=== PATIENT | male | born 1970 | race Caucasian/White ===

== ENCOUNTER 2017-03-30 14:10 | Emergency (ER) | payer BC ==
[2017-03-30] MEDS ORDERED: Sodium Chloride 0.9% 2.5 ML Syringe FLUSH PRN (14:28)
[2017-03-30] MEDS ORDERED: Sodium Chloride 0.9% 10 ML Syringe FLUSH PRN (14:28)
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
[2017-03-30 15:36] LABS: CHLORIDE,CL 105 mmol/L (98-110); SODIUM,NA 139 mmol/L (136-146)
[2017-03-30] MEDS ORDERED: cloNIDine 0.1 MG Tab PO ONE (16:19)
[2017-03-30 16:47] VITALS: BP 159/104
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
== END 2017-03-30 16:42 | disposition home or self-care (01) ==
LOC: MW.ED 14:10
DX: R56.9 Unspecified convulsions (principal)
CPT/HCPCS: 70450; 72125; 80053; 85025; 99284; A9270; 99283

== ENCOUNTER 2017-06-08 11:04 | Emergency (ER) | payer BC ==
[2017-06-08 12:01] VITALS: BP 146/78
--- NOTE | 2017-06-08 13:17 | EDM.PDOC ---
ED HPI GENERAL MEDICAL PROBLEM - General Chief Complaint: Respiratory Problem Stated Complaint: COLD COUGHING Time Seen by Provider: 06/08/17 13:05 Source of Information: Reports: Patient History Limitations: Reports: No Limitations - History of Present Illness INITIAL COMMENTS - FREE TEXT/NARRATIVE: HISTORY AND PHYSICAL: History of present illness: Patient comes to the emergency room complaining of cough and chest congestion for the past 3 weeks. At the onset of his symptoms he was coughing up clear to white colored sputum. This has turned somewhat yellow and is now streaked with blood. He is having some pain across his mid back and all throughout his chest which is much worse with coughing. He feels that his symptoms have worsened over the past 3 days. He now has fever and chills as well as some nausea. Denies body aches. No headache. He hears a strange sensation in his left chest with taking a deep breath, which is worse in the morning. He has taken DayQuil and NyQuil for his symptoms which has not provided any significant improvement. Many recent ill contacts. History of seizures and hypertension. Review of systems: As per history of present illness and below otherwise all systems reviewed and negative. Past medical history: As per history of present illness and as reviewed below otherwise noncontributory. Surgical history: As per history of present illness and as reviewed below otherwise noncontributory. Social history: No reported history of drug or alcohol abuse. Family history: As per history of present illness and as reviewed below otherwise noncontributory. Physical exam: HEENT: Atraumatic, normocephalic. TM's are pearly cervantes, no effusion. Oral mucous membranes moist, throat clear. neck supple, no lymphadenopathy. Face is nontender to palpation. Lungs: Clear to auscultation, breath sounds equal bilaterally. Mild crackles present to bilateral posterior lower lung jimenez. Heart: S1S2, regular rate and rhythm. Abdomen: Soft, nondistended, nontender. Pelvis: Stable nontender. Genitourinary: Deferred. Rectal: Deferred. Extremities: Atraumatic, no deformity. Neurovascular unremarkable. Neuro: Awake, alert, oriented. Motor and sensory unremarkable throughout. Exam nonfocal. Diagnostics: [Chest x-ray] Impression: [URI] Plan: [Discussed with patient that his chest x-ray is clear and does not show pneumonia or abnormalities. Will treat as a URI with Doxycycline 100mg (#14) sig : 1 po BID 0 RF's. Recommend Robitussin or Delsym cough syrup and Mucinex. Follow-up with PCP. Strict return precautions are reviewed with the patient.] Definitive disposition and diagnosis as appropriate pending reevaluation and review of above. Headache Pain Score (Numeric/FACES): 8 - Related Data Allergies Allergy/AdvReac Type Severity Reaction Status Date / Time No Known Allergies Allergy Verified 06/08/17 12:03 Home Meds: Home Meds levETIRAcetam [Levetiracetam] 1,000 mg PO BID 12/27/14 [History] Lisinopril [Prinivil] 20 mg PO DAILY 06/08/17 [History] Past Medical History HEENT History: Reports: None Cardiovascular History: Reports: None Respiratory History: Reports: None Gastrointestinal History: Reports: None Genitourinary History: Reports: None Musculoskeletal History: Reports: None Neurological History: Reports: Seizure Other Neuro History: Brain tumor Psychiatric History: Reports: None Endocrine/Metabolic History: Reports: None Hematologic History: Reports: None Immunologic History: Reports: None Oncologic (Cancer) History: Reports: None Dermatologic History: Reports: None - Past Surgical History Head Surgeries/Procedures: Reports: None Male Surgical History: Reports: None Other Neurological Surgeries/Procedures: brain tumor biopsy Social & Family History - Family History Family Medical History: Noncontributory - Tobacco Use Smoking Status *Q: Never Smoker Second Hand Smoke Exposure: No - Caffeine Use Caffeine Use: Reports: Soda - Alcohol Use Days Per Week of Alcohol Use: 1 Number of Drinks Per Day: 6 Total Drinks Per Week: 6 - Recreational Drug Use Recreational Drug Use: No ED ROS GENERAL - Review of Systems Review Of Systems: ROS reveals no pertinent complaints other than HPI. ED EXAM, GENERAL - Physical Exam Exam: See Below Course - Vital Signs Last Recorded V/S: Last Vital Signs Temp 98.2 F 06/08/17 12:00 Pulse 90 06/08/17 12:00 Resp 20 06/08/17 12:00 BP 146/78 H 06/08/17 12:00 Pulse Ox 96 06/08/17 12:00 - Orders/Labs/Meds Orders: Active Orders 24 hr Category Date Time Status Chest 2V [CR] Stat Exams 06/08/17 13:14 Taken Departure - Departure Time of Disposition: 14:00 Disposition: Home, Self-Care 01 Condition: Good Clinical Impression: URI (upper respiratory infection) - Discharge Information Instructions: Upper Respiratory Infection, Adult, [id number] Referrals: PCP,None [Primary Care Provider] - Forms: ED Department Discharge Additional Instructions: The following information is given to patients seen in the emergency department who are being discharged to home. This information is to outline your options for follow-up care. We provide all patients seen in our emergency department with a follow-up referral. The need for follow-up, as well as the timing and circumstances, are variable depending upon the specifics of your emergency department visit. If you don't have a primary care physician on staff, we will provide you with a referral. We always advise you to contact your personal physician following an emergency department visit to inform them of the circumstance of the visit and for follow-up with them and/or the need for any referrals to a consulting specialist. The emergency department will also refer you to a specialist when appropriate. This referral assures that you have the opportunity for follow-up care with a specialist. All of these measure are taken in an effort to provide you with optimal care, which includes your follow-up. Under all circumstances we always encourage you to contact your private physician who remains a resource for coordinating your care. When calling for follow-up care, please make the office aware that this follow-up is from your recent emergency room visit. If for any reason you are refused follow-up, please contact the [facility] emergency department at and asked to speak to the emergency department charge nurse. [facility] [address] [place] [id number] Follow-up with your PCP at the clinic listed above in the next 48-72 hours. Take Mucinex as needed for chest congestion. Recommend Robitussin or Delsym cough syrup as needed. These medications are superior to DayQuil and NyQuil. Take antibiotic as prescribed. Turn to ER as needed as discussed. - My Orders Last 24 Hours: My Active Orders 06/08/17 13:14 Chest 2V [CR] Stat - Assessment/Plan Last 24 Hours: My Active Orders 06/08/17 13:14 Chest 2V [CR] Stat
--- NOTE | 2017-06-10 12:42 | CR ---
EXAM DATE: 06/08/17 PATIENT'S AGE: 46 Patient: ALBERTO SWANN Facility: [place], [place] Site . Site : 1970 Study: XRay Chest [id number] 1:44:16 PM Ordering Physician: Doctor Abbott Final Report: HISTORY: Pain and shortness of breath. COMPARISON: 06/05/2016. FINDINGS: The lungs are clear. Costophrenic angles sharp. Heart size and pulmonary vascularity are within normal limits. Bony thorax intact. IMPRESSION: No acute pulmonary process. Dictated by Vianey Livingston MD @ Jun 08 2017 1:47PM (Electronic Signature) Report Signed by Proxy. ANN MARIE
== END 2017-06-08 14:12 | disposition home or self-care (01) ==
LOC: MW.ED 11:04
DX: J06.9 Acute upper respiratory infection, unspecified (principal); I10 Essential (primary) hypertension; Z79.899 Other long term (current) drug therapy
CPT/HCPCS: 71046; 71046-26; 99283

== ENCOUNTER 2018-01-20 10:16 | Emergency (ER) | payer BC ==
[2018-01-20] MEDS ORDERED: Sodium Chloride 0.9% 2.5 ML Syringe FLUSH PRN (10:32)
[2018-01-20] MEDS ORDERED: Sodium Chloride 0.9% 10 ML Syringe FLUSH PRN (10:32)
[2018-01-20] MEDS ORDERED: Sodium Chloride 0.9% 1,000 ML IV ONE (10:33)
[2018-01-20] MEDS ORDERED: Metoprolol Succinate 25 MG Tab.ER PO ONE (10:44)
--- NOTE | 2018-01-20 10:52 | EDM.PDOC ---
ED HPI GENERAL MEDICAL PROBLEM - General Chief Complaint: Headache Stated Complaint: PT SPOKE TO NURSE Time Seen by Provider: 01/20/18 10:48 Source of Information: Reports: Patient History Limitations: Reports: No Limitations - History of Present Illness INITIAL COMMENTS - FREE TEXT/NARRATIVE: HISTORY AND PHYSICAL: History of present illness: Patient is a 47-year-old male here with complaint of headache and generally feeling unwell. He states that he has been sick on and off for the past 5 days with vomiting and diarrhea. He reports he last vomited 3 days ago and last had diarrhea yesterday. He states he has a mild stomach ache. He reports he has had temps around 100F. He reports he has a head that is on the top and back of his head that feels like a constant pressure. He rates the pain 7/10, denies this being his worst headache ever. Patient states that he feels as though he is dehydrated. He denies any visual disturbances, nausea, ataxia, confusion. He denies any cough, congestion, chest pain, shortness of breath. Patient has a history of a brain tumor (astrocytoma) that is stable, he last had an MRI in [place] approximately 4-5 months ago. Blood pressure is 175/103 which he reports is usual for her, patient has not taken his metoprolol today. Again he denies any chest pain/pressure, shortness of breath, nausea, diaphoresis. Review of systems: As per history of present illness and below otherwise all systems reviewed and negative. Past medical history: As per history of present illness and as reviewed below otherwise noncontributory. Surgical history: As per history of present illness and as reviewed below otherwise noncontributory. Social history: No reported history of drug or alcohol abuse. Family history: As per history of present illness and as reviewed below otherwise noncontributory. Physical exam: General: Patient sitting comfortably in no acute distress and nontoxic appearing HEENT: Atraumatic, normocephalic, pupils reactive, negative for conjunctival pallor or scleral icterus, mucous membranes moist, throat clear, neck supple, nontender, trachea midline. No meningeal signs. Lungs: Clear to auscultation, breath sounds equal bilaterally, chest nontender. Heart: S1S2, regular, negative for clicks, rubs, or overt murmur. Abdomen: Soft, nondistended, nontender. Negative for masses or hepatosplenomegaly. Negative for costovertebral tenderness. Pelvis: Stable nontender. Genitourinary: Deferred. Rectal: Deferred. Extremities: Atraumatic, negative for cords or calf pain. Neurovascular unremarkable. Neuro: Awake, alert, oriented. Cranial nerves II through XII unremarkable. Cerebellum unremarkable. Motor and sensory unremarkable throughout. Exam nonfocal. Notes: Diagnostics: CBC, CMP, rapid strep, influenza Therapeutics: 1L NS IV Metoprolol 25mg PO Prescriptions: Impression: Headache Plan: 1. Drink plenty of fluids as instructed, tylenol or motrin as needed 2. Follow up with primary care provider 3. Return to ED as needed as discussed Definitive disposition and diagnosis as appropriate pending reevaluation and review of above. headache Pain Score (Numeric/FACES): 7 - Related Data Allergies Allergy/AdvReac Type Severity Reaction Status Date / Time No Known Allergies Allergy Verified 01/20/18 10:28 Home Meds: Home Meds levETIRAcetam [Levetiracetam] 1,000 mg PO BID 12/27/14 [History] Metoprolol Succinate [Toprol XL] 25 mg PO DAILY 01/20/18 [History] OXcarbazepine [Oxcarbazepine] 1 tab PO BID 01/20/18 [History] Past Medical History HEENT History: Reports: None Cardiovascular History: Reports: None Respiratory History: Reports: None Gastrointestinal History: Reports: None Genitourinary History: Reports: None Musculoskeletal History: Reports: None Neurological History: Reports: Seizure Other Neuro History: Brain tumor Psychiatric History: Reports: None Endocrine/Metabolic History: Reports: None Hematologic History: Reports: None Immunologic History: Reports: None Oncologic (Cancer) History: Reports: None Dermatologic History: Reports: None - Past Surgical History Head Surgeries/Procedures: Reports: None Male Surgical History: Reports: None Other Neurological Surgeries/Procedures: brain tumor biopsy Social & Family History - Family History Family Medical History: Noncontributory - Tobacco Use Smoking Status *Q: Never Smoker Second Hand Smoke Exposure: No - Caffeine Use Caffeine Use: Reports: Soda - Alcohol Use Days Per Week of Alcohol Use: 2 Number of Drinks Per Day: 8 Total Drinks Per Week: 16 - Recreational Drug Use Recreational Drug Use: No ED ROS GENERAL - Review of Systems Review Of Systems: ROS reveals no pertinent complaints other than HPI. - Physical Exam Exam: See Below (see dictation) Course - Vital Signs Last Recorded V/S: Last Vital Signs Temp 35.9 C 01/20/18 10:25 Pulse 72 01/20/18 11:02 Resp 18 01/20/18 10:25 BP 153/102 H 01/20/18 11:02 Pulse Ox 98 01/20/18 10:25 - Orders/Labs/Meds Orders: Active Orders 24 hr Category Date Time Status CULTURE STREP A CONFIRMATION [] Stat Lab 01/20/18 10:53 Results STREP SCRN A RAPID W CULT CONF [RM] Stat Lab 01/20/18 10:53 Results Sodium Chloride 0.9% [Saline Flush] Med 01/20/18 10:32 Active 10 ml FLUSH ASDIRECTED PRN Sodium Chloride 0.9% [Saline Flush] Med 01/20/18 10:32 Active 2.5 ml FLUSH ASDIRECTED PRN Saline Lock Insert [OM.PC] Stat Oth 01/20/18 10:33 Ordered Medication Orders Sodium Chloride (Saline Flush) 10 ml FLUSH ASDIRECTED PRN PRN Reason: Keep Vein Open Sodium Chloride (Saline Flush) 2.5 ml FLUSH ASDIRECTED PRN PRN Reason: Keep Vein Open Labs: Laboratory Tests 01/20/18 01/20/18 01/20/18 Range/Units 10:53 10:53 11:48 WBC 4.76 (4.0-11.0) K/uL RBC 4.56 (4.50-5.90) M/uL Hgb 14.0 (13.0-17.0) g/dL Hct 40.3 (38.0-50.0) % MCV 88.4 (80.0-98.0) fL MCH 30.7 (27.0-32.0) pg MCHC 34.7 (31.0-37.0) g/dL RDW Std Deviation 42.4 (28.0-62.0) fl RDW Coeff of Chanell 13 (11.0-15.0) % Plt Count 171 (150-400) K/uL MPV 9.90 (7.40-12.00) fL Neut % (Auto) 64.4 (48.0-80.0) % Lymph % (Auto) 25.8 (16.0-40.0) % [place] % (Auto) 6.9 (0.0-15.0) % Eos % (Auto) 2.5 (0.0-7.0) % Baso % (Auto) 0.4 (0.0-1.5) % Neut # (Auto) 3.1 (1.4-5.7) K/uL Lymph # (Auto) 1.2 (0.6-2.4) K/uL [place] # (Auto) 0.3 (0.0-0.8) K/uL Eos # (Auto) 0.1 (0.0-0.7) K/uL Baso # (Auto) 0.0 (0.0-0.1) K/uL Nucleated RBC % 0.0 /100WBC Nucleated RBCs # 0 K/uL Sodium 139 (136-148) mmol/L Potassium 3.6 (3.5-5.1) mmol/L Chloride 105 (98-107) mmol/L Carbon Dioxide 24.5 (21.0-32.0) mmol/L BUN 12 (7.0-18.0) mg/dL Creatinine 1.2 (0.8-1.3) mg/dL Est Cr Clr Drug Dosing 81.73 mL/min Estimated GFR (MDRD) > 60.0 ml/min Glucose 92 (74-106) mg/dL Calcium 8.5 (8.5-10.1) mg/dL Total Bilirubin 0.7 (0.2-1.0) mg/dL AST 23 (15-37) IU/L ALT 33 (14-63) IU/L Alkaline Phosphatase 76 (46-116) U/L Total Protein 7.1 (6.4-8.2) g/dL Albumin 3.7 (3.4-5.0) g/dL Globulin 3.4 (2.0-3.5) g/dL Albumin/Globulin Ratio 1.1 L (1.3-2.8) Lipase 187 (73-393) U/L Urine Color YELLOW Urine Appearance CLEAR Urine pH 6.0 (5.0-8.0) Ur Specific [place] >= 1.030 (1.001-1.035) Urine Protein NEGATIVE (NEGATIVE) mg/dL Urine Glucose (UA) NEGATIVE (NEGATIVE) mg/dL Urine Ketones NEGATIVE (NEGATIVE) mg/dL Urine Occult Blood NEGATIVE (NEGATIVE) Urine Nitrite NEGATIVE (NEGATIVE) Urine Bilirubin NEGATIVE (NEGATIVE) Urine Urobilinogen 0.2 (<2.0) EU/dL Ur Leukocyte Esterase NEGATIVE (NEGATIVE) Meds: Medications Generic Name Dose Route Start Last Admin Trade Name Freq PRN Reason Stop Dose Admin Sodium Chloride 10 ml 01/20/18 10:32 Saline Flush FLUSH ASDIRECTED PRN Keep Vein Open Sodium Chloride 2.5 ml 01/20/18 10:32 Saline Flush FLUSH ASDIRECTED PRN Keep Vein Open Discontinued Medications Generic Name Dose Route Start Last Admin Trade Name Freq PRN Reason Stop Dose Admin Sodium Chloride 1,000 mls @ 999 mls/hr 01/20/18 10:33 01/20/18 11:01 Normal Saline IV 01/20/18 11:33 999 mls/hr STAT ONE Administration Ketorolac Tromethamine 30 mg 01/20/18 11:16 01/20/18 11:30 Toradol IVPUSH 01/20/18 11:17 30 mg ONETIME ONE Administration Metoprolol Succinate 25 mg 01/20/18 10:44 01/20/18 11:02 Toprol Xl PO 01/20/18 10:45 25 mg ONETIME ONE Administration Departure - Departure Time of Disposition: 13:02 Disposition: Home, Self-Care 01 Condition: Good Clinical Impression: Headache - Discharge Information Forms: ED Department Discharge Additional Instructions: The following information is given to patients seen in the emergency department who are being discharged to home. This information is to outline your options for follow-up care. We provide all patients seen in our emergency department with a follow-up referral. The need for follow-up, as well as the timing and circumstances, are variable depending upon the specifics of your emergency department visit. If you don't have a primary care physician on staff, we will provide you with a referral. We always advise you to contact your personal physician following an emergency department visit to inform them of the circumstance of the visit and for follow-up with them and/or the need for any referrals to a consulting specialist. The emergency department will also refer you to a specialist when appropriate. This referral assures that you have the opportunity for follow-up care with a specialist. All of these measure are taken in an effort to provide you with optimal care, which includes your follow-up. Under all circumstances we always encourage you to contact your private physician who remains a resource for coordinating your care. When calling for follow-up care, please make the office aware that this follow-up is from your recent emergency room visit. If for any reason you are refused follow-up, please contact the [facility] Emergency Department at and asked to speak to the emergency department charge nurse. [address] [address] 1. Drink plenty of fluids as instructed, tylenol or motrin as needed 2. Follow up with primary care provider 3. Return to ED as needed as discussed - My Orders Last 24 Hours: My Active Orders 01/20/18 10:32 Sodium Chloride 0.9% [Saline Flush] 10 ml FLUSH ASDIRECTED PRN Sodium Chloride 0.9% [Saline Flush] 2.5 ml FLUSH ASDIRECTED PRN 01/20/18 10:33 Saline Lock Insert [OM.PC] Stat 01/20/18 10:53 CULTURE STREP A CONFIRMATION [RM] Stat STREP SCRN A RAPID W CULT CONF [RM] Stat - Assessment/Plan Last 24 Hours: My Active Orders 01/20/18 10:32 Sodium Chloride 0.9% [Saline Flush] 10 ml FLUSH ASDIRECTED PRN Sodium Chloride 0.9% [Saline Flush] 2.5 ml FLUSH ASDIRECTED PRN 01/20/18 10:33 Saline Lock Insert [OM.PC] Stat 01/20/18 10:53 CULTURE STREP A CONFIRMATION [RM] Stat STREP SCRN A RAPID W CULT CONF [RM] Stat
[2018-01-20] MEDS ORDERED: Ketorolac 30 MG/ML SDV IVPUSH ONE (11:16)
[2018-01-20 11:31] LABS: CHLORIDE,CL 105 mmol/L (98-107); SODIUM,NA 139 mmol/L (136-148)
--- NOTE | 2018-01-20 12:55 | CT ---
EXAMINATION: Non contrast CT head. Coronal and sagittal reformats. HISTORY: Headache FINDINGS: No evidence of intra or extra axial hemorrhage, midline shift, hydrocephalus or edema. There is a l arge hypodense area within the right temporal temporal lobe extending into the insular region, not si gnificantly unchanged. No hypoattenuation changes in the major vascular territories to suggest acute infarct. No abnormal intracranial calcifications are detected. No evidence of substantial vascular calcificat ions. Paranasal sinuses and mastoid air cells are well aerated without substantial findings. Stable calcifi ed dural based nodule overlying the medial right frontal lobe likely a meningioma. Pituitary fossa appears unremarkable. Postoperative changes noted within the right temporal calvarium. IMPRESSION: 1. No acute intracranial findings. 2. Large hypodense region involving the majority of the right temporal lobe, not significantly change d from the prior CT.
[2018-01-20 13:22] VITALS: BP 150/92
== END 2018-01-20 13:05 | disposition home or self-care (01) ==
LOC: MW.ED 10:16
DX: R51 Headache (principal); R19.7 Diarrhea, unspecified; R11.10 Vomiting, unspecified; Z79.899 Other long term (current) drug therapy
CPT/HCPCS: 36415; 70450; 80053; 81003; 83690; 85025; 87081; 87804; 87880; 96361; 96374; 99284; A9270; J1885; J7040; 99283

== ENCOUNTER 2018-07-25 15:21 | Emergency (ER) | payer BC ==
--- NOTE | 2018-07-25 16:23 | EDM.PDOC ---
ED HPI GENERAL MEDICAL PROBLEM - General Chief Complaint: Lower Extremity Injury/Pain Stated Complaint: LEG INJURY Time Seen by Provider: 07/25/18 16:18 - History of Present Illness INITIAL COMMENTS - FREE TEXT/NARRATIVE: HISTORY AND PHYSICAL: History of present illness: Patient's a 48-year-old white male presents with a concern of left knee and ankle injury that occurred when he had a fall earlier today he denies head or neck pain or trauma or other concern. Review of systems: As per history of present illness and below otherwise all systems reviewed and negative. Past medical history: As per history of present illness and as reviewed below otherwise noncontributory. Surgical history: As per history of present illness and as reviewed below otherwise noncontributory. Social history: No reported history of drug or alcohol abuse. Family history: As per history of present illness and as reviewed below otherwise noncontributory. Physical exam: HEENT: Atraumatic, normocephalic, pupils reactive, negative for conjunctival pallor or scleral icterus, mucous membranes moist, throat clear, neck supple, nontender, trachea midline. Lungs: Clear to auscultation, breath sounds equal bilaterally, chest nontender. Heart: S1S2, regular, negative for clicks, rubs, or JVD. Abdomen: Soft, nondistended, nontender. Negative for masses or hepatosplenomegaly. Negative for costovertebral tenderness. Pelvis: Stable nontender. Genitourinary: Deferred. Rectal: Deferred. Extremities: Left knee is noted Some swelling anteriorly joint is grossly stable is no crepitation or point tenderness left ankle is without point tenderness neurovascular exam is unremarkable throughout Neuro: Awake, alert, oriented. Cranial nerves II through XII unremarkable. Cerebellum unremarkable. Motor and sensory unremarkable throughout. Exam nonfocal. Diagnostics: Tray left knee/ankle Therapeutics: Eugenio wrap/crutches Impression: #1 acute left knee injury #2 ankle injury Definitive disposition and diagnosis as appropriate pending reevaluation and review of above. left knee and ankle Pain Score (Numeric/FACES): 7 - Related Data Allergies Allergy/AdvReac Type Severity Reaction Status Date / Time No Known Allergies Allergy Verified 07/25/18 15:31 Home Meds: Home Meds levETIRAcetam [Levetiracetam] 1,000 mg PO BID 12/27/14 [History] Metoprolol Succinate [Toprol XL] 25 mg PO DAILY 01/20/18 [History] OXcarbazepine [Oxcarbazepine] 1 tab PO BID 01/20/18 [History] Past Medical History HEENT History: Reports: None Cardiovascular History: Reports: None Respiratory History: Reports: None Gastrointestinal History: Reports: None Genitourinary History: Reports: None Musculoskeletal History: Reports: None Neurological History: Reports: Seizure Other Neuro History: Brain tumor Psychiatric History: Reports: None Endocrine/Metabolic History: Reports: None Hematologic History: Reports: None Immunologic History: Reports: None Oncologic (Cancer) History: Reports: None Dermatologic History: Reports: None - Infectious Disease History Infectious Disease History: Reports: None - Past Surgical History Head Surgeries/Procedures: Reports: None Male Surgical History: Reports: None Other Neurological Surgeries/Procedures: brain tumor biopsy Social & Family History - Family History Family Medical History: Noncontributory - Tobacco Use Smoking Status *Q: Never Smoker - Caffeine Use Caffeine Use: Reports: Soda - Recreational Drug Use Recreational Drug Use: No Review of Systems - Review of Systems Review Of Systems: ROS reveals no pertinent complaints other than HPI. ED EXAM, GENERAL - Physical Exam Exam: See Below (See dictation) Course - Vital Signs Last Recorded V/S: Last Vital Signs Temp 36.4 C 07/25/18 15:34 Pulse 83 07/25/18 15:34 Resp 18 07/25/18 15:34 BP 179/98 H 07/25/18 15:34 Pulse Ox 98 07/25/18 15:34 - Orders/Labs/Meds Orders: Active Orders 24 hr Category Date Time Status Ankle Min 3V Lt [CR] Stat Exams 07/25/18 15:33 Taken Knee 3V Lt [CR] Stat Exams 07/25/18 15:33 Taken Departure - Departure Time of Disposition: 16:22 Disposition: Home, Self-Care 01 Condition: Good Clinical Impression: Knee injury, Ankle injury - Discharge Information Referrals: PCP,Unknown [Primary Care Provider] - Additional Instructions: The following information is given to patients seen in the emergency department who are being discharged to home. This information is to outline your options for follow-up care. We provide all patients seen in our emergency department with a follow-up referral. The need for follow-up, as well as the timing and circumstances, are variable depending upon the specifics of your emergency department visit. If you don't have a primary care physician on staff, we will provide you with a referral. We always advise you to contact your personal physician following an emergency department visit to inform them of the circumstance of the visit and for follow-up with them and/or the need for any referrals to a consulting specialist. The emergency department will also refer you to a specialist when appropriate. This referral assures that you have the opportunity for followup care with a specialist. All of these measure are taken in an effort to provide you with optimal care, which includes your followup. Under all circumstances we always encourage you to contact your private physician who remains a resource for coordinating your care. When calling for followup care, please make the office aware that this follow-up is from your recent emergency room visit. If for any reason you are refused follow-up, please contact the [facility] emergency department at and asked to speak to the emergency department charge nurse. [facility] [address], [address] [place] [address] Eugenio wrap crutches as discussed follow-up orthopedic surgery as needed as discussed diclofenac as prescribed return as needed as discussed - My Orders Last 24 Hours: My Active Orders 07/25/18 15:33 Ankle Min 3V Lt [CR] Stat Knee 3V Lt [CR] Stat - Assessment/Plan Last 24 Hours: My Active Orders 07/25/18 15:33 Ankle Min 3V Lt [CR] Stat Knee 3V Lt [CR] Stat
--- NOTE | 2018-07-25 16:51 | CR ---
Indication: Fall Technique: Left ankle 3 views. Comparison: None Findings: Bones: Alignment is normal. No fractures or bone lesions. Joint spaces: Unremarkable. Soft tissues: Unremarkable. Impression: No sign of acute injury. Dictated by Matthew Hdez MD @ Jul 25 2018 4:47PM Signed by Dr. Matthew Hdez @ Jul 25 2018 4:49PM
--- NOTE | 2018-07-25 16:51 | CR ---
Indication: Fall Technique: Left knee 3 views Comparison: None Findings: Bones: Alignment is normal. No fractures or bone lesions. Joint spaces: Joint spaces are well maintained. No degenerative changes. No sign of joint effusion. Soft tissues: Unremarkable. Impression: No findings to explain pain. Dictated by Matthew Hdez MD @ Jul 25 2018 4:49PM Signed by Dr. Matthew Hdez @ Jul 25 2018 4:50PM
[2018-07-25 17:30] VITALS: BP 174/88
== END 2018-07-25 17:00 | disposition home or self-care (01) ==
LOC: MW.ED 15:21
DX: S89.92XA Unspecified injury of left lower leg, initial encounter (principal); S99.912A Unspecified injury of left ankle, initial encounter; W19.XXXA Unspecified fall, initial encounter; Z79.899 Other long term (current) drug therapy
CPT/HCPCS: 73562-26-LT; 73562-LT; 73610-26-LT; 73610-LT; 99283-25

== ENCOUNTER 2018-08-30 17:29 | Emergency (ER) | payer BC ==
--- NOTE | 2018-08-30 18:55 | CR ---
INDICATION: Knee pain TECHNIQUE: Knee radiograph 3 views left COMPARISON: None FINDINGS: Bone: No acute fractures or aggressive bone lesions are identified. Joint: The joint spaces of the medial, lateral, and patellofemoral compartments are unremarkable. No significant knee effusion is seen. Soft tissue: Mild edema and swelling noted in the anterior knee. No radiopaque foreign bodies are seen. IMPRESSION: 1. No acute osseous injuries or abnormalities are noted. Dictated by: Mika Blandon MD @ 08/30/2018 18:53:13 (Electronically Signed)
--- NOTE | 2018-08-30 19:13 | EDM.PDOC ---
ED HPI GENERAL MEDICAL PROBLEM - General Chief Complaint: Lower Extremity Injury/Pain Stated Complaint: knee injury Time Seen by Provider: 08/30/18 18:30 Source of Information: Reports: Patient History Limitations: Reports: No Limitations - History of Present Illness INITIAL COMMENTS - FREE TEXT/NARRATIVE: HISTORY AND PHYSICAL: History of present illness: Patient is a 48 year old male who presents to the ED today for left knee injury. Patient states he was walking when he twisted his left knee. Since then he has been having 6 out of 10 knee pain. He states he hasn't taken anything for his symptoms. Patient states he has had a prior injury to the knee but that it had healed without any issues. Patient denies fever, chills, chest pain, shortness of breath, or cough. Denies headache, neck stiff ness, change in vision, syncope, or near syncope. Denies nausea, vomiting, abdominal pain, diarrhea, constipation, or dysuria. Has not noted any blood in urine or stool. Patient has been eating and drinking appropriately. Review of systems: As per history of present illness and below otherwise all systems reviewed and negative. Past medical history: As per history of present illness and as reviewed below otherwise noncontributory. Surgical history: As per history of present illness and as reviewed below otherwise noncontributory. Social history: See social history for further information Family history: As per history of present illness and as reviewed below otherwise noncontributory. Physical exam: General: Patient is alert, oriented, and in no acute distress. Patient sitting comfortably on exam table. HEENT: Atraumatic, normocephalic, pupils equal and reactive bilaterally, negative for conjunctival pallor or scleral icterus, mucous membranes moist, TMs normal bilaterally, throat clear, neck supple, nontender, trachea midline. No drooling or trismus noted. No meningeal signs. No hot potato voice noted. Lungs: Clear to auscultation, breath sounds equal bilaterally, chest nontender. Heart: S1S2, regular rate and rhythm without overt murmur Abdomen: Soft, nondistended, nontender. Negative for masses or hepatosplenomegaly. Negative for costovertebral tenderness. Pelvis: Stable nontender. Genitourinary: Deferred. Rectal: Deferred. Skin: Intact, warm, dry. No lesions or rashes noted. Extremities: Negative for cords or calf pain. Neurovascular unremarkable. Mild swelling to the left knee. Range of motion is limited due to pain. No obvious deformities, step-offs, or crepitus. Dorsalis pedis and posterior tibial pulses are grossly intact. Capillary refill less than 2 seconds. Neuro: Awake, alert, oriented. Cranial nerves II through XII unremarkable. Cerebellum unremarkable. Motor and sensory unremarkable throughout. Exam nonfocal. Notes: Discussed the importance for follow-up with an orthopedic provider and primary care provider. Voices understanding and is agreeable to plan of care. Denies any further questions or concerns at this time. Diagnostics: Knee x-ray Therapeutics: [employer] Prescription: Diclofenac Impression: Left knee injury Plan: 1. Rest, ice, elevate the affected extremity. You can apply ice 15 minutes on, 15 minutes off. 2. Tylenol as directed for pain management or discomfort. Take medication as prescribed. 3. Follow up with the Orthopedic provider as discussed. Return to the ED as needed and as discussed. Definitive disposition and diagnosis as appropriate pending reevaluation and review of above. Left Knee Pain Score (Numeric/FACES): 10 - Related Data Allergies Allergy/AdvReac Type Severity Reaction Status Date / Time No Known Allergies Allergy Verified 08/30/18 18:15 Home Meds: Home Meds levETIRAcetam [Levetiracetam] 1,000 mg PO BID 12/27/14 [History] Metoprolol Succinate [Toprol XL] 25 mg PO DAILY 01/20/18 [History] OXcarbazepine [Oxcarbazepine] 1 tab PO TID 01/20/18 [History] Diclofenac Sodium [Voltaren] 75 mg PO BIDMEALS PRN #12 tab.cr 08/30/18 [Rx] Past Medical History HEENT History: Reports: None Cardiovascular History: Reports: Hypertension Respiratory History: Reports: None Gastrointestinal History: Reports: None Genitourinary History: Reports: None Musculoskeletal History: Reports: None Neurological History: Reports: Seizure Other Neuro History: Brain tumor Psychiatric History: Reports: None Endocrine/Metabolic History: Reports: None Hematologic History: Reports: None Immunologic History: Reports: None Oncologic (Cancer) History: Reports: None Dermatologic History: Reports: None - Infectious Disease History Infectious Disease History: Reports: None - Past Surgical History Head Surgeries/Procedures: Reports: None Male Surgical History: Reports: None Other Neurological Surgeries/Procedures: brain tumor biopsy Social & Family History - Family History Family Medical History: Noncontributory - Tobacco Use Smoking Status *Q: Never Smoker - Caffeine Use Caffeine Use: Reports: None - Recreational Drug Use Recreational Drug Use: No Review of Systems - Review of Systems Review Of Systems: ROS reveals no pertinent complaints other than HPI. ED EXAM, GENERAL - Physical Exam Exam: See Below (See dictation) Course - Vital Signs Last Recorded V/S: Last Vital Signs Temp 36.4 C 08/30/18 18:12 Pulse 76 08/30/18 19:36 Resp 15 08/30/18 19:36 BP 145/99 H 08/30/18 19:36 Pulse Ox 97 08/30/18 19:36 Departure - Departure Time of Disposition: 19:12 Disposition: Home, Self-Care 01 Clinical Impression: Knee injury Qualifiers: Encounter type: initial encounter Laterality: left Qualified Code(s): S89.92XA - Unspecified injury of left lower leg, initial encounter - Discharge Information Prescriptions: Diclofenac Sodium [Voltaren] 75 mg PO BIDMEALS PRN #12 tab.cr PRN Reason: Pain Instructions: Knee Pain, Adult Referrals: PCP,Unknown [Primary Care Provider] - Forms: ED Department Discharge Additional Instructions: The following information is given to patients seen in the emergency department who are being discharged to home. This information is to outline your options for follow-up care. We provide all patients seen in our emergency department with a follow-up referral. The need for follow-up, as well as the timing and circumstances, are variable depending upon the specifics of your emergency department visit. If you don't have a primary care physician on staff, we will provide you with a referral. We always advise you to contact your personal physician following an emergency department visit to inform them of the circumstance of the visit and for follow-up with them and/or the need for any referrals to a consulting specialist. The emergency department will also refer you to a specialist when appropriate. This referral assures that you have the opportunity for follow-up care with a specialist. All of these measure are taken in an effort to provide you with optimal care, which includes your follow-up. Under all circumstances we always encourage you to contact your private physician who remains a resource for coordinating your care. When calling for follow-up care, please make the office aware that this follow-up is from your recent emergency room visit. If for any reason you are refused follow-up, please contact the [facility] Emergency Department at and asked to speak to the emergency department charge nurse. [facility] [address] [place] [address] [address] [facility] Professional Building [address] [place] [address], [address] [place] [address] 1. Rest, ice, elevate the affected extremity. You can apply ice 15 minutes on, 15 minutes off. 2. Tylenol as directed for pain management or discomfort. Take medication as prescribed. 3. Follow up with the Orthopedic provider as discussed. Return to the ED as needed and as discussed.
[2018-08-30 19:37] VITALS: BP 145/99
== END 2018-08-30 19:37 | disposition home or self-care (01) ==
LOC: MW.ED 17:29
DX: S89.92XA Unspecified injury of left lower leg, initial encounter (principal); I10 Essential (primary) hypertension; Z79.899 Other long term (current) drug therapy; W19.XXXA Unspecified fall, initial encounter
CPT/HCPCS: 73562-26-LT; 73562-LT; 99283-25

== ENCOUNTER 2019-06-16 15:51 | Emergency (ER) | payer BC ==
--- NOTE | 2019-06-16 16:54 | CT ---
Head CT Technique: Multiple axial sections through the brain were obtained. Intravenous contrast was not utilized. Comparison: Prior head CT study of 01/20/18. Findings: Large hypodense area is identified on the right side within the right temporal and posterior right frontal region. This finding is felt to be fairly stable from prior exam. Please correlate if etiology of this is known clinically. No new areas of abnormal parenchymal density are seen. No intracranial hemorrhage is seen. No midline shift or mass-effect is appreciated. Bone window settings were reviewed which shows no acute calvarial abnormality. Mastoid sinuses that are seen show nothing acute. Visualized paranasal sinuses show nothing acute. Impression: 1. Large area of low density within the right side of the brain which remains fairly stable from previous head CT study. Etiology for this finding is not appreciated on this exam. Please correlate if etiology is known clinically. 2. No acute intracranial abnormality is appreciated. Diagnostic code #3 This report was dictated in Mountain Standard Time
[2019-06-16 17:55] VITALS: BP 167/95; PULSE 71
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
== END 2019-06-16 18:10 | disposition home or self-care (01) ==
LOC: MW.ED 15:51
DX: S06.0X9A Concussion with loss of consciousness of unspecified duration, initial encounter (principal); I10 Essential (primary) hypertension; Z79.899 Other long term (current) drug therapy; Y04.0XXA Assault by unarmed brawl or fight, initial encounter
CPT/HCPCS: 70450; 70450-26; 99283; 99284-25

== ENCOUNTER 2019-10-30 09:26 | Emergency (ER) | payer BC ==
--- NOTE | 2019-10-30 10:05 | EDM.PDOC ---
ED HPI GENERAL MEDICAL PROBLEM - General Chief Complaint: General Stated Complaint: SPOKE WITH NURSE Time Seen by Provider: 10/30/19 10:00 Source of Information: Reports: Patient, EMS Notes Reviewed History Limitations: Reports: No Limitations - History of Present Illness INITIAL COMMENTS - FREE TEXT/NARRATIVE: 49-year-old male with a significant past medical history of a brain tumor; states that this type of tumor cannot be removed and is currently on numerous medications to prevent seizures Presenting today for concerns about COVID exposure Mentions female acquaintance that he hangs out with tested positive yesterday for COVID (from [place]) and was symptomatic with cold-like symptoms. Patient currently denies any fevers, chills, bodies, coughing, sneezing, wheezing, shortness of breath, palpitations. Patient is concerned whether he needs to be tested secondary to COVID exposure. - Related Data Allergies Allergy/AdvReac Type Severity Reaction Status Date / Time No Known Allergies Allergy Verified 10/30/19 09:53 Home Meds: Home Meds levETIRAcetam [Levetiracetam] 1,000 mg PO BID 12/27/14 [History] Metoprolol Succinate [Toprol XL] 25 mg PO DAILY 01/20/18 [History] OXcarbazepine [Oxcarbazepine] 1 tab PO TID 01/20/18 [History] Past Medical History HEENT History: Reports: None Cardiovascular History: Reports: Hypertension Respiratory History: Reports: None Gastrointestinal History: Reports: None Genitourinary History: Reports: None Musculoskeletal History: Reports: None Neurological History: Reports: Seizure Other Neuro History: Brain tumor Psychiatric History: Reports: None Endocrine/Metabolic History: Reports: None Hematologic History: Reports: None Immunologic History: Reports: None Oncologic (Cancer) History: Reports: None Dermatologic History: Reports: None - Infectious Disease History Infectious Disease History: Reports: None - Past Surgical History Head Surgeries/Procedures: Reports: None Male Surgical History: Reports: None Other Neurological Surgeries/Procedures: brain tumor biopsy Social & Family History - Family History Family Medical History: Noncontributory - Caffeine Use Caffeine Use: Reports: Soda ED ROS GENERAL - Review of Systems Review Of Systems: See Below Constitutional: Reports: No Symptoms HEENT: Reports: No Symptoms Respiratory: Reports: No Symptoms Cardiovascular: Reports: No Symptoms Endocrine: Reports: No Symptoms GI/Abdominal: Reports: No Symptoms : Reports: No Symptoms Musculoskeletal: Reports: No Symptoms Skin: Reports: No Symptoms Neurological: Reports: No Symptoms Psychiatric: Reports: No Symptoms ED EXAM, GENERAL - Physical Exam Exam: See Below General Appearance: Alert, WD/WN, No Apparent Distress Throat/Mouth: Normal Oropharynx Head: Atraumatic, Normocephalic Respiratory/Chest: No Respiratory Distress, Lungs Clear, Normal Breath Sounds Cardiovascular: Normal Peripheral Pulses, Regular Rate, Rhythm, No Edema GI/Abdominal: Normal Bowel Sounds, Soft, Non-Tender Extremities: Normal Inspection Neurological: Alert, Oriented Skin Exam: Warm, Dry, Intact Course - Vital Signs Last Recorded V/S: Last Vital Signs Temp 96.9 F 10/30/19 09:50 Pulse 62 10/30/19 10:45 Resp 16 10/30/19 10:45 BP 136/91 H 10/30/19 10:45 Pulse Ox 98 10/30/19 10:45 Departure - Departure Time of Disposition: 10:23 Disposition: Home, Self-Care 01 Clinical Impression: Exposure to COVID-19 virus - Discharge Information *PRESCRIPTION DRUG MONITORING PROGRAM REVIEWED*: Not Applicable *COPY OF PRESCRIPTION DRUG MONITORING REPORT IN PATIENT FLORI: Not Applicable Instructions: Contact Precautions, COVID-19 Frequently Asked Questions, COVID- 19, Airborne Precautions, [id number], COVID-19: How to Protect Yourself and Others - CDC, Infection Prevention in the Home, Prevent the Spread of COVID-19 if You Are Sick - [facility] Referrals: Teodoro Hollis [Ordering Only Provider] - (To respiratory clinic Saturday) Taya Jerez DO [Primary Care Provider] - Forms: ED Department Discharge Additional Instructions: PLEASE SELF QUARANTINE FOR THE NEXT 14 DAYS RETURN IF SYMPTOMS OF FEVER, CHILLS, BODY ACHES, SHORTNESS OF BREATH, CHEST PAIN AND ANY OTHER NEW SYMPTOM DEVELOP.S IF NO SYMPTOMS CAN CONTACT RESPIRATORY CLINIC ON Saturday11-02-2019 FOR COVID TESTING Sepsis Event Note (ED) - Focused Exam Vital Signs: Vital Signs Temp Pulse Resp BP Pulse Ox 10/30/19 10:45 62 16 136/91 H 98 10/30/19 09:57 151/95 H 10/30/19 09:50 96.9 F 71 18 194/111 H 99 - Assessment/Plan Assessment:: assessment 1. COVID exposure; patient is currently asymptomatic. Advised patient return to ER if patient develops any fevers, chills, body aches, chest pain, shortness of breath. Provided instructions about 14 days of quarantine including contact and droplet precautions. Advised to use a mask at all times especially around other individuals. Advised to avoid any unnecessary travel. Patient is also advised if still asymptomatic to contact respiratory clinic at [facility] on Saturday for a COVID testing. Patient is in agreement understands plan. Will return for any concerns, symptoms. Discharged in stable condition. Elevated BP on arrival: repeat BP WNL; continue Home medication of Metoprolol
[2019-10-30 10:48] VITALS: BP 136/91; PULSE 62
== END 2019-10-30 10:47 | disposition home or self-care (01) ==
LOC: MW.ED 09:26
DX: Z20.828 Contact with and (suspected) exposure to other viral communicable diseases (principal); I10 Essential (primary) hypertension; R56.9 Unspecified convulsions; Z79.899 Other long term (current) drug therapy
CPT/HCPCS: 99283

== ENCOUNTER 2020-07-03 04:36 | Emergency (ER) | payer BC ==
[2020-07-03 05:04] VITALS: BP 156/113; PULSE 104
[2020-07-03] MEDS ORDERED: Sulfamethoxazole/Trimethoprim 800-160 MG Tab PO ONE (05:36)
[2020-07-03] MEDS ORDERED: Cephalexin 500 MG Cap PO ONE (05:36)
[2020-07-03] MEDS ORDERED: Bacitracin Oint 1 GM U/D Packet TOP ONE (05:53)
--- NOTE | 2020-07-03 05:53 | EDM.PDOC ---
ED HPI GENERAL MEDICAL PROBLEM - General Chief Complaint: Upper Extremity Injury/Pain Stated Complaint: BRUISED MIDDLE FINGER ON LEFT HAND Time Seen by Provider: 07/03/20 05:05 - History of Present Illness INITIAL COMMENTS - FREE TEXT/NARRATIVE: CHIEF COMPLAINT(S): Finger pain HISTORY OF PRESENT ILLNESS: This is a 50-year-old man with a past medical history of seizure disorder, hypertension and a brain tumor unknown type who comes to the emergency department with a chief complaint of finger pain. The patient states that approximately 1 week ago he started to experience pain on his middle finger by the nailbed. He states that since that time it has gotten more painful and swollen and started turning black today. He states that he is in so much pain and rates it as a 10 out of 10 and hurts anytime he moves it. He states that he comes in because he cannot sleep. He denies any fevers, chills, chest pain or shortness of breath. He states that he did not injure his finger. He denies any other symptoms. REVIEW OF SYSTEMS: Constitutional: Denies fever, chills. Eyes: Denies eye pain Ears, Nose, Mouth, & Throat: Denies earache Cardiovascular: Denies chest pain Respiratory: Denies shortness of breath Gastrointestinal: Denies Nausea, vomiting, diarrhea, hematochezia. Genitourinary: Denies hematuria Skin: Positive for right middle finger swelling and turning black MSK: Positive for right middle finger pain Neurological: Denies blurred vision Psychiatric: Denies depression PAST MEDICAL HISTORY: As per history of present illness and as reviewed below otherwise noncontributory. SURGICAL HISTORY: As per history of present illness and as reviewed below otherwise noncontributory. SOCIAL HISTORY: As per history of present illness and as reviewed below otherwise noncontributory. FAMILY HISTORY: As per history of present illness and as reviewed below otherwise noncontributory. EXAMINATION OF ORGAN SYSTEMS/BODY AREAS: Constitutional: Blood pressure is 156/113, heart rate 104, respiratory rate 20 with an oxygen saturation 96% on room air. Temperature 36.3 General: Well-appearing man who is in no acute distress. Psychiatric: Appropriate mood and affect. Eyes: No scleral icterus or conjunctival erythema Cardiovascular: Regular, rate, and rhythm. No gallops, murmurs, or rubs. Bilateral upper extremity pulses symmetric and intact. Respiratory: Lungs clear to auscultation bilaterally. No wheezes, rales, or rhonchi. Musculoskeletal: The patient has full range of motion of the right middle finger. There is tenderness to palpation along the distal tip. No deformity. Skin: The patient's distal right middle finger is swollen on the lateral side of the nail which is fluctuant with some redness and what appears to be like a hematoma underneath. There is suggestion of paronychia but also the distal fingertip is swollen with redness throughout. Neurological: Alert, GCS 15 sensation is intact MEDICAL DECISION MAKING AND COURSE IN THE ED WITH INTERPRETATION/REVIEW OF DIAGN OSTIC STUDIES: This is a 50-year-old man with a past medical history of seizure disorder and hypertension who comes to the emergency department with right middle finger paronychia with suggestion of felon. At this time I did discuss with the patient that I would like to perform an incision and drainage for the felon and the paronychia and start the patient on antibiotics. He was amenable to this plan. Using 1% lidocaine I did inject approximately 2 to 3 cc along the lateral side of the middle finger for digital block. The area was cleaned with ChloraPrep prior to injection. No known complications. Incision and drainage was performed by myself. The area was prepped with povidone. An incision was made with an 11 blade along the lateral side/ulnar side of the third digit on the right hand and the swollen side where the paronychia is was drained. Purulent material was removed. The wound was packed with gauze. A dressing was placed. We did provide the patient with Keflex and Bactrim. He is to take this until follow-up with orthopedics. He was given strict return precautions. The patient was amenable discharge and had no further questions DISPOSITION: The patient was discharged home in stable condition. The patient will follow up with orthopedics within 5 to 7 days CONDITION: Fair PROCEDURES: Digital nerve block, incision and drainage of paronychia and felon FINAL IMPRESSION(S)/DIAGNOSES: 1. Acute right third digit felon status post incision and drainage 2. Acute right third digit paronychia status post incision and drainage Solitario Ruiz M.D. left hand Pain Score (Numeric/FACES): 10 - Related Data Allergies Allergy/AdvReac Type Severity Reaction Status Date / Time No Known Allergies Allergy Verified 07/03/20 05:01 Home Meds: Home Meds levETIRAcetam [Levetiracetam] 1,000 mg PO BID 12/27/14 [History] Metoprolol Succinate [Toprol XL] 25 mg PO DAILY 01/20/18 [History] OXcarbazepine [Oxcarbazepine] 1 tab PO TID 01/20/18 [History] Sulfamethoxazole/Trimethoprim [Bactrim Ds Tablet] 1 each PO BID #14 tablet 07/03/20 [Rx] cephALEXin [Keflex] 500 mg PO Q6H #28 cap 07/03/20 [Rx] Past Medical History HEENT History: Reports: None Cardiovascular History: Reports: Hypertension Respiratory History: Reports: None Gastrointestinal History: Reports: None Genitourinary History: Reports: None Musculoskeletal History: Reports: None Neurological History: Reports: Seizure Other Neuro History: Brain tumor Psychiatric History: Reports: None Endocrine/Metabolic History: Reports: None Hematologic History: Reports: None Immunologic History: Reports: None Oncologic (Cancer) History: Reports: None Dermatologic History: Reports: None - Infectious Disease History Infectious Disease History: Reports: None - Past Surgical History Head Surgeries/Procedures: Reports: None Male Surgical History: Reports: None Other Neurological Surgeries/Procedures: brain tumor biopsy Other Musculoskeletal Surgeries/Procedures:: Left surgery for fx Social & Family History - Family History Family Medical History: No Pertinent Family History - Tobacco Use Tobacco Use Status *Q: Never Tobacco User - Caffeine Use Caffeine Use: Reports: Soda - Recreational Drug Use Recreational Drug Use: No Review of Systems - Review of Systems Review Of Systems: See Below ED EXAM, GENERAL - Physical Exam Exam: See Below Course - Vital Signs Last Recorded V/S: Last Vital Signs Temp 36.3 C 07/03/20 05:02 Pulse 104 H 07/03/20 05:02 Resp 20 07/03/20 05:02 BP 156/113 H 07/03/20 05:02 Pulse Ox 96 07/03/20 05:02 - Orders/Labs/Meds Meds: Medications Discontinued Medications Generic Name Dose Route Start Last Admin Trade Name Freq PRN Reason Stop Dose Admin Bacitracin 1 dose 07/03/20 05:53 07/03/20 06:00 Bacitracin Oint 1 Gm TOP 07/03/20 05:54 1 dose ONETIME ONE Administration Cephalexin 500 mg 07/03/20 05:36 07/03/20 06:00 Keflex PO 07/03/20 05:37 500 mg ONETIME ONE Administration Lidocaine HCl 5 ml 07/03/20 05:15 07/03/20 05:20 Xylocaine-Mpf 1% INJECT 07/03/20 05:16 5 ml ONETIME ONE Administration Trimethoprim/Sulfamethoxazole 1 tab 07/03/20 05:36 07/03/20 06:00 Septra Ds PO 07/03/20 05:37 1 tab ONETIME ONE Administration Departure - Departure Time of Disposition: 05:51 Disposition: Home, Self-Care 01 Condition: Fair Clinical Impression: Felon, Paronychia - Discharge Information *PRESCRIPTION DRUG MONITORING PROGRAM REVIEWED*: No *COPY OF PRESCRIPTION DRUG MONITORING REPORT IN PATIENT FLORI: No Prescriptions: Sulfamethoxazole/Trimethoprim [Bactrim Ds Tablet] 1 each PO BID #14 tablet cephALEXin [Keflex] 500 mg PO Q6H #28 cap Instructions: Fingertip Infection, Paronychia, [id number] Referrals: Neel Scott MD [Primary Care Provider] - Forms: ED Department Discharge Additional Instructions: You were evaluated today on an emergent basis. At this time you are diagnosed with a felon and paronychia. We were able to drain this area. We did send a culture which will not be back for a few days. I recommend the use of Keflex 4 times a day and Bactrim twice a day for 7 days. As we discussed some antibiotics can lower the seizure threshold. If you have more seizures and they are not controlled please return to the emergency department. I also recommend the use of Tylenol and Motrin for pain relief as outlined below. If you have any worsening pain, swelling, redness that spreads please return to the emergency department. Please follow-up with your primary care physician or orthopedics within 1 week [facility] [address] [place] [id number] [facility] [address] [place] [address] [facility] [address], [address] [place] [address] The patient is informed of any results of their evaluation and diagnostic workup and all questions are answered. They are given discharge instructions and return precautions. The patient is stable for discharge. The patient states they understand and agree with the plan and that they will return if their symptoms get worse or if they have any new concerns. The following information is given to patients seen in the emergency department who are being discharged to home. This information is to outline your options for follow-up care. We provide all patients seen in our emergency department with a follow-up referral. The need for follow-up, as well as the timing and circumstances, are variable depending upon the specifics of your emergency department visit. If you don't have a primary care physician on staff, we will provide you with a referral. We always advise you to contact your personal physician following an emergency department visit to inform them of the circumstance of the visit and for follow-up with them and/or the need for any referrals to a consulting specialist. The emergency department will also refer you to a specialist when appropriate. This referral assures that you have the opportunity for follow-up care with a specialist. All of these measure are taken in an effort to provide you with optimal care, which includes your follow-up. Under all circumstances we always encourage you to contact your private physician who remains a resource for coordinating your care. When calling for follow-up care, please make the office aware that this follow-up is from your recent emergency room visit. If for any reason you are refused follow-up, please contact the [facility] Department at and asked to speak to the emergency department charge nurse. Sepsis Event Note (ED) - Evaluation Sepsis Screening Result: No Definite Risk
== END 2020-07-03 06:07 | disposition home or self-care (01) ==
LOC: MW.ED 04:36
DX: L03.012 Cellulitis of left finger (principal); G40.909 Epilepsy, unspecified, not intractable, without status epilepticus; I10 Essential (primary) hypertension
CPT/HCPCS: 26011; 87070; 87077; 87186; 99283; A9270

== ENCOUNTER 2021-06-28 10:46 | Emergency (ER) | payer BC ==
[2021-06-28 10:58] VITALS: BP 163/102; PULSE 69
== END 2021-06-28 13:37 | disposition home or self-care (01) ==
LOC: MW.ED 10:46
DX: R51.9 Headache, unspecified (principal); I10 Essential (primary) hypertension; Z85.841 Personal history of malignant neoplasm of brain; Z79.899 Other long term (current) drug therapy
CPT/HCPCS: 70450; 70450-26; 99284-25

== ENCOUNTER 2021-09-02 23:38 | Emergency (ER) | payer BC ==
[2021-09-03 00:10] VITALS: PULSE 80
[2021-09-03] MEDS ORDERED: Morphine 4 MG/ML VIAL IVPUSH ONE (00:36)
[2021-09-03] MEDS ORDERED: Ondansetron 4 MG/2 ML SDV IVPUSH ONE (00:36)
[2021-09-03] MEDS ORDERED: Octyl 2-Cyanoacrylate 1 Tube TOP ONE (01:37)
[2021-09-03 01:58] VITALS: BP 124/86
== END 2021-09-03 01:58 | disposition home or self-care (01) ==
LOC: MW.ED 23:38
DX: S01.512A Laceration without foreign body of oral cavity, initial encounter (principal); I10 Essential (primary) hypertension; Y04.2XXA Assault by strike against or bumped into by another person, initial encounter
CPT/HCPCS: 70450; 70486; 70490; 96374; 96375; 99284; A9270; J2270; J2405

== ENCOUNTER 2023-05-28 15:52 | Emergency (ER) | payer BC ==
[2023-05-28] MEDS ORDERED: HYDROmorphone 2 MG Tab PO ONE (16:08)
[2023-05-28 17:56] VITALS: BP 179/102; PULSE 67
== END 2023-05-28 17:55 | disposition home or self-care (01) ==
LOC: MW.ED 15:52
DX: R51.9 Headache, unspecified (principal); Z48.811 Encounter for surgical aftercare following surgery on the nervous system; Z79.2 Long term (current) use of antibiotics; Z79.899 Other long term (current) drug therapy
CPT/HCPCS: 70450; 99284; A9270; 99283

== ENCOUNTER 2023-06-01 08:27 | Inpatient (IN) | payer BC ==
[2023-06-01] MEDS: Ondansetron 4 MG/2 ML SDV IVPUSH ONE (08:46)
[2023-06-01] MEDS: fentaNYL 50 MCG/ML SDV IVPUSH ONE ×2 (08:46→09:18)
[2023-06-01 08:51] LABS: BASOPHILS ABSOLUTE AUTO 0.02 K/uL (0.00-0.20); BASOPHILS PERCENT AUTO 0.2 % (0.0-1.0); EOSINOPHILS PERCENT AUTO 0.9 % (0.0-6.0); HEMATOCRIT 42.4 % (42.0-52.0); HEMOGLOBIN 14.5 g/dL (14.0-18.0); IMMATURE GRAN ABSOLUTE AUTO 0.22 K/uL (0.00-0.05); LYMPHOCYTES ABSOLUTE AUTO 1.28 K/uL (1.00-4.80); LYMPHOCYTES PERCENT AUTO 11.6 % (24.0-44.0); MEAN CORPUSCULAR HEMOGLOBIN 31.4 pg (28.0-32.0); MEAN CORPUSCULAR HGB CONC 34.2 g/dL (32.0-36.0); MEAN CORPUSCULAR VOLUME 91.8 fL (83.0-99.0); MEAN PLATELET VOLUME 8.9 fL (9.4-12.4); MONOCYTES ABSOLUTE AUTO 0.78 K/uL (0.00-0.80); MONOCYTES PERCENT AUTO 7.1 % (0.0-8.0); NEUTROPHILS ABSOLUTE AUTO 8.62 K/uL (1.80-7.70); NEUTROPHILS PERCENT AUTO 78.2 % (41.0-71.0); PLATELET COUNT,PLT 292 K/uL (150-400); RED BLOOD CELL COUNT 4.62 M/uL (4.52-5.90); WHITE BLOOD CELL COUNT,WBC 11.02 K/uL (3.9-11.3)
[2023-06-01 09:11] LABS: ALBUMIN 3.6 g/dL (3.4-5.0); BILIRUBIN TOTAL 0.6 mg/dL (0.2-1.0); CALCIUM 8.8 mg/dL (8.5-10.1); CARBON DIOXIDE,CO2 27.9 mmol/L (21.0-32.0); EST CRCL DRUG DOSING (CG) 92.69 mL/min; POTASSIUM,K 4.4 mmol/L (3.5-5.1); PROTEIN TOTAL,TP 7.2 g/dL (6.4-8.2)
[2023-06-01] MEDS: HYDROmorphone 1 MG/ML Syringe IVPUSH ONE ×2 (10:04→10:34)
[2023-06-01] MEDS: Ketorolac 30 MG/ML SDV IVPUSH ONE (11:38)
[2023-06-01] MEDS: Methocarbamol 750 MG Tab PO STA (11:38)
[2023-06-01] MEDS: Dexamethasone 4 MG/ML SDV IVPUSH ONE (12:39)
[2023-06-01] MEDS: HYDROmorphone 1 MG/ML Syringe IVPUSH STA (14:19)
[2023-06-01] MEDS ORDERED: Acetaminophen 325 MG Tab PO PRN (16:09)
[2023-06-01] MEDS ORDERED: Ibuprofen 400 MG Tab PO PRN (16:27)
[2023-06-01] MEDS: Pantoprazole 40 MG in Sodium Chloride 0.9% 10 ML IVPUSH SCH (16:49)
[2023-06-01] MEDS: Sennosides 8.6 MG Tab PO SCH (16:58)
[2023-06-01] MEDS: Polyethylene Glycol 3350 Powder 17 GM Packet PO SCH (16:59)
[2023-06-01] MEDS: HYDROmorphone 2 MG Tab PO PRN (18:06)
[2023-06-01] MEDS: Dexamethasone 4 MG/ML SDV IVPUSH SCH (18:07)
[2023-06-01] MEDS: OXcarbazepine 300 MG Tab PO SCH (18:14)
[2023-06-01] MEDS: HYDROmorphone 2 MG Tab PO SCH (18:59)
[2023-06-01] MEDS: Ondansetron 4 MG/2 ML SDV IVPUSH PRN (19:29)
[2023-06-01] MEDS: Methocarbamol 750 MG Tab PO SCH (22:19)
[2023-06-01] MEDS: levETIRAcetam 500 MG Tab PO SCH (22:28)
[2023-06-02] MEDS: Non-Formulary Medication 1 Each (Levetiracetam [Keppra] 1,000 MG Tablet) PO SCH (00:06)
[2023-06-02 06:09] LABS: BASOPHILS ABSOLUTE AUTO 0.03 K/uL (0.00-0.20); BASOPHILS PERCENT AUTO 0.2 % (0.0-1.0); HEMATOCRIT 40.7 % (42.0-52.0); HEMOGLOBIN 14.1 g/dL (14.0-18.0); IMMATURE GRAN ABSOLUTE AUTO 0.16 K/uL (0.00-0.05); IMMATURE GRAN PERCENT AUTO 1.1 % (0.0-0.4); LYMPHOCYTES ABSOLUTE AUTO 0.59 K/uL (1.00-4.80); LYMPHOCYTES PERCENT AUTO 4.2 % (24.0-44.0); MEAN CORPUSCULAR HEMOGLOBIN 31.3 pg (28.0-32.0); MEAN CORPUSCULAR HGB CONC 34.6 g/dL (32.0-36.0); MEAN CORPUSCULAR VOLUME 90.2 fL (83.0-99.0); MEAN PLATELET VOLUME 9.1 fL (9.4-12.4); MONOCYTES ABSOLUTE AUTO 0.22 K/uL (0.00-0.80); MONOCYTES PERCENT AUTO 1.6 % (0.0-8.0); NEUTROPHILS PERCENT AUTO 92.9 % (41.0-71.0); PLATELET COUNT,PLT 301 K/uL (150-400); RED BLOOD CELL COUNT 4.51 M/uL (4.52-5.90)
[2023-06-02 06:28] LABS: BLOOD UREA NITROGEN,BUN 15 mg/dL (7.0-18.0); CARBON DIOXIDE,CO2 21.3 mmol/L (21.0-32.0); CHLORIDE,CL 90 mmol/L (98-107); GLUCOSE RANDOM 165 mg/dL (74-106); POTASSIUM,K 4.9 mmol/L (3.5-5.1); SODIUM,NA 125 mmol/L (136-148)
[2023-06-02 06:34] LABS: ESTIMATED GFR 89 mL/min (>60)
[2023-06-02] MEDS: Ketorolac 30 MG/ML SDV IVPUSH PRN (08:22)
[2023-06-02] MEDS: Diltiazem 120 MG Cap.CD PO SCH (08:22)
[2023-06-02] MEDS: Metoprolol Tartrate 50 MG Tab PO SCH (08:41)
[2023-06-02] MEDS ORDERED: Non-Formulary Medication 1 Each (Metoprolol Tartrate 100 MG Tablet) PO SCH (09:00)
[2023-06-02] MEDS: Dexamethasone 4 MG/ML SDV IVPUSH SCH (10:46)
[2023-06-02] MEDS: Acetaminophen 325 MG Tab PO PRN (10:48)
[2023-06-02 12:59] LABS: BLOOD UREA NITROGEN,BUN 21 mg/dL (7.0-18.0); CALCIUM 9.1 mg/dL (8.5-10.1); CARBON DIOXIDE,CO2 20.3 mmol/L (21.0-32.0); CHLORIDE,CL 89 mmol/L (98-107); CREATININE 1.2 mg/dL (0.8-1.3); ESTIMATED GFR 72 mL/min (>60); GLUCOSE RANDOM 146 mg/dL (74-106); POTASSIUM,K 5.4 mmol/L (3.5-5.1); SODIUM,NA 124 mmol/L (136-148)
[2023-06-02] MEDS: Sodium Chloride 0.9% 500 ML IV SCH ×2 (13:49→18:40)
[2023-06-02] MEDS ORDERED: oxyCODONE 5 MG Tab PO PRN (13:55)
[2023-06-02] MEDS: LORazepam 2 MG/ML SDV IVPUSH ONE (14:19)
[2023-06-02 15:04] LABS: A/G RATIO 0.9 (0.9-1.6); ALANINE AMINOTRANSFERASE,ALT 52 IU/L (14-63); ALBUMIN 3.5 g/dL (3.4-5.0); ALKALINE PHOSPHATASE 48 U/L (46-116); ASPARTATE AMNIOTRANSFERASE,AST 19 IU/L (15-37); BILIRUBIN TOTAL 0.7 mg/dL (0.2-1.0); BLOOD UREA NITROGEN,BUN 24 mg/dL (7.0-18.0); CALCIUM 9.1 mg/dL (8.5-10.1); CARBON DIOXIDE,CO2 20.2 mmol/L (21.0-32.0); CHLORIDE,CL 89 mmol/L (98-107); CREATININE 1.2 mg/dL (0.8-1.3); GLUCOSE RANDOM 146 mg/dL (74-106); MAGNESIUM 2.1 mg/dL (1.8-2.4); POTASSIUM,K 5.6 mmol/L (3.5-5.1); PROTEIN TOTAL,TP 7.2 g/dL (6.4-8.2); SODIUM,NA 123 mmol/L (136-148)
[2023-06-02 15:05] LABS: ESTIMATED GFR 72 mL/min (>60)
[2023-06-02] MEDS: Sodium Zirconium Cyclosilicate 10 GM Packet PO SCH (16:17)
[2023-06-02] MEDS: Sodium Chloride 1 GM Tab PO SCH (16:17)
[2023-06-02 17:25] LABS: BLOOD UREA NITROGEN,BUN 22 mg/dL (7.0-18.0); CARBON DIOXIDE,CO2 19.4 mmol/L (21.0-32.0); CHLORIDE,CL 90 mmol/L (98-107); CREATININE 1.1 mg/dL (0.8-1.3); ESTIMATED GFR 80 mL/min (>60); GLUCOSE RANDOM 132 mg/dL (74-106); POTASSIUM,K 4.9 mmol/L (3.5-5.1); SODIUM,NA 123 mmol/L (136-148)
[2023-06-02] MEDS: HYDROmorphone 2 MG Tab PO PRN (17:48)
[2023-06-02] MEDS: LORazepam 0.5 MG Tab PO PRN (20:24)
[2023-06-02] MEDS: oxyCODONE 5 MG Tab PO SCH (20:40)
[2023-06-02 21:29] LABS: BLOOD UREA NITROGEN,BUN 20 mg/dL (7.0-18.0); CALCIUM 8.8 mg/dL (8.5-10.1); CARBON DIOXIDE,CO2 24.6 mmol/L (21.0-32.0); CHLORIDE,CL 90 mmol/L (98-107); CREATININE 1.1 mg/dL (0.8-1.3); GLUCOSE RANDOM 161 mg/dL (74-106); POTASSIUM,K 5.2 mmol/L (3.5-5.1); SODIUM,NA 124 mmol/L (136-148)
[2023-06-02 21:36] LABS: ESTIMATED GFR 80 mL/min (>60)
[2023-06-03 01:24] LABS: BLOOD UREA NITROGEN,BUN 19 mg/dL (7.0-18.0); CALCIUM 8.3 mg/dL (8.5-10.1); CARBON DIOXIDE,CO2 23.4 mmol/L (21.0-32.0); CHLORIDE,CL 89 mmol/L (98-107); CREATININE 0.9 mg/dL (0.8-1.3); GLUCOSE RANDOM 136 mg/dL (74-106); SODIUM,NA 123 mmol/L (136-148)
[2023-06-03 01:25] LABS: ESTIMATED GFR 101 mL/min (>60)
[2023-06-03 03:31] LABS: TSH ULTRASENSITIVE 0.31 uIU/mL (0.36-3.74)
[2023-06-03 03:55] LABS: T4 FREE 0.78 ng/dL (0.76-1.46)
[2023-06-03 05:36] LABS: BASOPHILS ABSOLUTE AUTO 0.02 K/uL (0.00-0.20); BASOPHILS PERCENT AUTO 0.1 % (0.0-1.0); EOSINOPHILS ABSOLUTE AUTO 0.06 K/uL (0.00-0.45); EOSINOPHILS PERCENT AUTO 0.3 % (0.0-6.0); HEMATOCRIT 35.4 % (42.0-52.0); HEMOGLOBIN 12.4 g/dL (14.0-18.0); IMMATURE GRAN ABSOLUTE AUTO 0.17 K/uL (0.00-0.05); IMMATURE GRAN PERCENT AUTO 0.9 % (0.0-0.4); LYMPHOCYTES ABSOLUTE AUTO 0.71 K/uL (1.00-4.80); LYMPHOCYTES PERCENT AUTO 3.7 % (24.0-44.0); MEAN CORPUSCULAR HEMOGLOBIN 31.3 pg (28.0-32.0); MEAN CORPUSCULAR VOLUME 89.4 fL (83.0-99.0); MEAN PLATELET VOLUME 9.3 fL (9.4-12.4); MONOCYTES ABSOLUTE AUTO 0.89 K/uL (0.00-0.80); MONOCYTES PERCENT AUTO 4.7 % (0.0-8.0); NEUTROPHILS ABSOLUTE AUTO 17.16 K/uL (1.80-7.70); NEUTROPHILS PERCENT AUTO 90.3 % (41.0-71.0); PLATELET COUNT,PLT 269 K/uL (150-400); RED BLOOD CELL COUNT 3.96 M/uL (4.52-5.90); WHITE BLOOD CELL COUNT,WBC 19.01 K/uL (3.9-11.3)
[2023-06-03 05:55] LABS: BLOOD UREA NITROGEN,BUN 17 mg/dL (7.0-18.0); CALCIUM 8.5 mg/dL (8.5-10.1); CARBON DIOXIDE,CO2 22.7 mmol/L (21.0-32.0); CHLORIDE,CL 88 mmol/L (98-107); CREATININE 0.9 mg/dL (0.8-1.3); GLUCOSE RANDOM 137 mg/dL (74-106); POTASSIUM,K 4.9 mmol/L (3.5-5.1); SODIUM,NA 122 mmol/L (136-148)
[2023-06-03 06:00] LABS: ESTIMATED GFR 101 mL/min (>60)
[2023-06-03] MEDS ORDERED: Sodium Chloride 0.9% 250 ML IV SCH (06:45)
[2023-06-03] MEDS: Sodium Chloride 0.9% 250 ML IV SCH (07:23)
[2023-06-03 09:43] LABS: BLOOD UREA NITROGEN,BUN 17 mg/dL (7.0-18.0); CALCIUM 8.7 mg/dL (8.5-10.1); CARBON DIOXIDE,CO2 22.7 mmol/L (21.0-32.0); CHLORIDE,CL 88 mmol/L (98-107); CREATININE 0.9 mg/dL (0.8-1.3); GLUCOSE RANDOM 149 mg/dL (74-106); POTASSIUM,K 4.5 mmol/L (3.5-5.1); SODIUM,NA 122 mmol/L (136-148)
[2023-06-03 09:44] LABS: ESTIMATED GFR 101 mL/min (>60)
[2023-06-03] MEDS: Dexamethasone 4 MG/ML SDV IVPUSH SCH (11:32)
[2023-06-03] MEDS: Docusate Sodium 100 MG Cap PO ONE (11:58)
[2023-06-03] MEDS: Enoxaparin 40 MG/0.4 ML Syringe SUBCUT SCH (11:58)
[2023-06-03 13:47] LABS: BLOOD UREA NITROGEN,BUN 16 mg/dL (7.0-18.0); CALCIUM 8.7 mg/dL (8.5-10.1); CHLORIDE,CL 88 mmol/L (98-107); CREATININE 0.9 mg/dL (0.8-1.3); GLUCOSE RANDOM 132 mg/dL (74-106); POTASSIUM,K 4.5 mmol/L (3.5-5.1); SODIUM,NA 121 mmol/L (136-148)
[2023-06-03 13:48] LABS: ESTIMATED GFR 101 mL/min (>60)
[2023-06-03] MEDS: Sodium Chloride 3% 500 ML IV SCH ×2 (15:16→21:10)
[2023-06-03 17:45] LABS: BLOOD UREA NITROGEN,BUN 19 mg/dL (7.0-18.0); CALCIUM 8.4 mg/dL (8.5-10.1); CHLORIDE,CL 89 mmol/L (98-107); ESTIMATED GFR 89 mL/min (>60); GLUCOSE RANDOM 131 mg/dL (74-106); POTASSIUM,K 4.6 mmol/L (3.5-5.1); SODIUM,NA 122 mmol/L (136-148)
[2023-06-03 20:28] LABS: BLOOD UREA NITROGEN,BUN 18 mg/dL (7.0-18.0); CALCIUM 8.2 mg/dL (8.5-10.1); CARBON DIOXIDE,CO2 22.3 mmol/L (21.0-32.0); CHLORIDE,CL 89 mmol/L (98-107); GLUCOSE RANDOM 134 mg/dL (74-106); POTASSIUM,K 4.5 mmol/L (3.5-5.1); SODIUM,NA 122 mmol/L (136-148)
[2023-06-03 20:29] LABS: ESTIMATED GFR 89 mL/min (>60)
[2023-06-04 11:13] LABS: BLOOD UREA NITROGEN,BUN 15 mg/dL (7.0-18.0); CALCIUM 8.4 mg/dL (8.5-10.1); CARBON DIOXIDE,CO2 22.7 mmol/L (21.0-32.0); CHLORIDE,CL 91 mmol/L (98-107); CREATININE 0.8 mg/dL (0.8-1.3); GLUCOSE RANDOM 125 mg/dL (74-106); POTASSIUM,K 4.5 mmol/L (3.5-5.1); SODIUM,NA 125 mmol/L (136-148)
[2023-06-04 11:26] LABS: ESTIMATED GFR 105 mL/min (>60)
[2023-06-04 12:04] LABS: BASOPHILS ABSOLUTE AUTO 0.01 K/uL (0.00-0.20); BASOPHILS PERCENT AUTO 0.1 % (0.0-1.0); EOSINOPHILS ABSOLUTE AUTO 0.07 K/uL (0.00-0.45); EOSINOPHILS PERCENT AUTO 0.5 % (0.0-6.0); HEMATOCRIT 34.8 % (42.0-52.0); HEMOGLOBIN 12.4 g/dL (14.0-18.0); IMMATURE GRAN ABSOLUTE AUTO 0.22 K/uL (0.00-0.05); IMMATURE GRAN PERCENT AUTO 1.6 % (0.0-0.4); LYMPHOCYTES ABSOLUTE AUTO 0.62 K/uL (1.00-4.80); LYMPHOCYTES PERCENT AUTO 4.6 % (24.0-44.0); MEAN CORPUSCULAR HGB CONC 35.6 g/dL (32.0-36.0); MEAN CORPUSCULAR VOLUME 89.9 fL (83.0-99.0); MEAN PLATELET VOLUME 9.4 fL (9.4-12.4); MONOCYTES ABSOLUTE AUTO 0.95 K/uL (0.00-0.80); NEUTROPHILS ABSOLUTE AUTO 11.68 K/uL (1.80-7.70); NEUTROPHILS PERCENT AUTO 86.2 % (41.0-71.0); PLATELET COUNT,PLT 233 K/uL (150-400); RED BLOOD CELL COUNT 3.87 M/uL (4.52-5.90); WHITE BLOOD CELL COUNT,WBC 13.55 K/uL (3.9-11.3)
[2023-06-04] MEDS: oxyCODONE 5 MG Tab PO ONE (12:27)
[2023-06-04] MEDS: Dexamethasone 10 MG/ML SDV IVPUSH SCH (12:32)
[2023-06-04] MEDS: Sodium Chloride 3% 500 ML IV SCH (13:53)
[2023-06-04 13:55] LABS: BLOOD UREA NITROGEN,BUN 16 mg/dL (7.0-18.0); CALCIUM 8.7 mg/dL (8.5-10.1); CARBON DIOXIDE,CO2 21.9 mmol/L (21.0-32.0); CHLORIDE,CL 92 mmol/L (98-107); GLUCOSE RANDOM 113 mg/dL (74-106); POTASSIUM,K 4.3 mmol/L (3.5-5.1); SODIUM,NA 126 mmol/L (136-148)
[2023-06-04 13:57] LABS: ESTIMATED GFR 89 mL/min (>60)
[2023-06-04] MEDS: Sodium Chloride 1 GM Tab PO SCH ×3 (16:15→23:59)
[2023-06-04 18:51] LABS: BLOOD UREA NITROGEN,BUN 16 mg/dL (7.0-18.0); CALCIUM 8.8 mg/dL (8.5-10.1); CARBON DIOXIDE,CO2 21.1 mmol/L (21.0-32.0); CHLORIDE,CL 92 mmol/L (98-107); CREATININE 0.9 mg/dL (0.8-1.3); GLUCOSE RANDOM 141 mg/dL (74-106); POTASSIUM,K 4.3 mmol/L (3.5-5.1); SODIUM,NA 126 mmol/L (136-148)
[2023-06-04 18:55] LABS: ESTIMATED GFR 101 mL/min (>60)
[2023-06-04 21:49] LABS: BLOOD UREA NITROGEN,BUN 18 mg/dL (7.0-18.0); CALCIUM 8.6 mg/dL (8.5-10.1); CARBON DIOXIDE,CO2 22.4 mmol/L (21.0-32.0); CHLORIDE,CL 92 mmol/L (98-107); GLUCOSE RANDOM 136 mg/dL (74-106); SODIUM,NA 127 mmol/L (136-148)
[2023-06-04 21:51] LABS: ESTIMATED GFR 89 mL/min (>60)
[2023-06-05 01:47] LABS: BLOOD UREA NITROGEN,BUN 17 mg/dL (7.0-18.0); CALCIUM 8.2 mg/dL (8.5-10.1); CHLORIDE,CL 94 mmol/L (98-107); CREATININE 0.9 mg/dL (0.8-1.3); GLUCOSE RANDOM 119 mg/dL (74-106); POTASSIUM,K 4.1 mmol/L (3.5-5.1); SODIUM,NA 129 mmol/L (136-148)
[2023-06-05 01:48] LABS: ESTIMATED GFR 101 mL/min (>60)
[2023-06-05 05:36] LABS: BASOPHILS ABSOLUTE AUTO 0.01 K/uL (0.00-0.20); BASOPHILS PERCENT AUTO 0.1 % (0.0-1.0); EOSINOPHILS ABSOLUTE AUTO 0.01 K/uL (0.00-0.45); EOSINOPHILS PERCENT AUTO 0.1 % (0.0-6.0); HEMATOCRIT 36.4 % (42.0-52.0); HEMOGLOBIN 12.5 g/dL (14.0-18.0); IMMATURE GRAN ABSOLUTE AUTO 0.19 K/uL (0.00-0.05); IMMATURE GRAN PERCENT AUTO 1.6 % (0.0-0.4); LYMPHOCYTES ABSOLUTE AUTO 0.68 K/uL (1.00-4.80); LYMPHOCYTES PERCENT AUTO 5.6 % (24.0-44.0); MEAN CORPUSCULAR HEMOGLOBIN 30.7 pg (28.0-32.0); MEAN CORPUSCULAR HGB CONC 34.3 g/dL (32.0-36.0); MEAN CORPUSCULAR VOLUME 89.4 fL (83.0-99.0); MEAN PLATELET VOLUME 9.3 fL (9.4-12.4); MONOCYTES ABSOLUTE AUTO 1.46 K/uL (0.00-0.80); MONOCYTES PERCENT AUTO 11.9 % (0.0-8.0); NEUTROPHILS ABSOLUTE AUTO 9.88 K/uL (1.80-7.70); NEUTROPHILS PERCENT AUTO 80.7 % (41.0-71.0); PLATELET COUNT,PLT 240 K/uL (150-400); RED BLOOD CELL COUNT 4.07 M/uL (4.52-5.90); WHITE BLOOD CELL COUNT,WBC 12.23 K/uL (3.9-11.3)
[2023-06-05 05:59] LABS: BLOOD UREA NITROGEN,BUN 16 mg/dL (7.0-18.0); CALCIUM 8.3 mg/dL (8.5-10.1); CARBON DIOXIDE,CO2 24.6 mmol/L (21.0-32.0); CHLORIDE,CL 95 mmol/L (98-107); CREATININE 0.9 mg/dL (0.8-1.3); GLUCOSE RANDOM 113 mg/dL (74-106); MAGNESIUM 2.1 mg/dL (1.8-2.4); PHOSPHORUS 3.4 mg/dL (2.6-4.7); POTASSIUM,K 4.4 mmol/L (3.5-5.1); SODIUM,NA 129 mmol/L (136-148)
[2023-06-05 06:00] LABS: ESTIMATED GFR 101 mL/min (>60)
[2023-06-05 18:06] LABS: BLOOD UREA NITROGEN,BUN 17 mg/dL (7.0-18.0); CALCIUM 8.6 mg/dL (8.5-10.1); CARBON DIOXIDE,CO2 22.4 mmol/L (21.0-32.0); CHLORIDE,CL 93 mmol/L (98-107); CREATININE 1.2 mg/dL (0.8-1.3); GLUCOSE RANDOM 124 mg/dL (74-106); POTASSIUM,K 3.9 mmol/L (3.5-5.1); SODIUM,NA 128 mmol/L (136-148)
[2023-06-05 18:07] LABS: ESTIMATED GFR 72 mL/min (>60)
[2023-06-06 05:27] LABS: HEMATOCRIT 34.4 % (42.0-52.0); HEMOGLOBIN 12.1 g/dL (14.0-18.0); MEAN CORPUSCULAR HEMOGLOBIN 31.5 pg (28.0-32.0); MEAN CORPUSCULAR HGB CONC 35.2 g/dL (32.0-36.0); MEAN CORPUSCULAR VOLUME 89.6 fL (83.0-99.0); MEAN PLATELET VOLUME 9.9 fL (9.4-12.4); PLATELET COUNT,PLT 210 K/uL (150-400); RED BLOOD CELL COUNT 3.84 M/uL (4.52-5.90)
[2023-06-06 05:48] LABS: BLOOD UREA NITROGEN,BUN 17 mg/dL (7.0-18.0); CARBON DIOXIDE,CO2 23.3 mmol/L (21.0-32.0); CHLORIDE,CL 94 mmol/L (98-107); CREATININE 1.1 mg/dL (0.8-1.3); GLUCOSE RANDOM 119 mg/dL (74-106); POTASSIUM,K 3.5 mmol/L (3.5-5.1); SODIUM,NA 128 mmol/L (136-148)
[2023-06-06 05:50] LABS: EOSINOPHILS ABSOLUTE MAN 0.11 K/uL (0.00-0.45); EOSINOPHILS PERCENT MAN 1 % (0-6); LYMPHOCYTES ABSOLUTE MAN 1.67 K/uL (1.00-4.80); LYMPHOCYTES PERCENT MAN 15 % (24-44); MONOCYTES ABSOLUTE MAN 1.55 K/uL (0.00-0.80); MONOCYTES PERCENT MAN 14 % (0-8); SEG NEUTROPHILS ABSOLUTE MAN 7.77 K/uL (1.80-7.70); SEG NEUTROPHILS PERCENT MAN 70 % (41-71)
[2023-06-06 05:52] LABS: ESTIMATED GFR 80 mL/min (>60)
[2023-06-06] MEDS: Sodium Chloride 1 GM Tab PO SCH (13:00)
[2023-06-06 17:58] LABS: BLOOD UREA NITROGEN,BUN 17 mg/dL (7.0-18.0); CALCIUM 8.5 mg/dL (8.5-10.1); CARBON DIOXIDE,CO2 24.3 mmol/L (21.0-32.0); CHLORIDE,CL 97 mmol/L (98-107); CREATININE 1.2 mg/dL (0.8-1.3); GLUCOSE RANDOM 84 mg/dL (74-106); POTASSIUM,K 4.1 mmol/L (3.5-5.1); SODIUM,NA 132 mmol/L (136-148)
[2023-06-06 18:00] LABS: ESTIMATED GFR 72 mL/min (>60)
[2023-06-07 06:35] LABS: BASOPHILS ABSOLUTE AUTO 0.02 K/uL (0.00-0.20); BASOPHILS PERCENT AUTO 0.2 % (0.0-1.0); EOSINOPHILS ABSOLUTE AUTO 0.09 K/uL (0.00-0.45); EOSINOPHILS PERCENT AUTO 1.1 % (0.0-6.0); HEMATOCRIT 35.1 % (42.0-52.0); HEMOGLOBIN 12.2 g/dL (14.0-18.0); IMMATURE GRAN ABSOLUTE AUTO 0.15 K/uL (0.00-0.05); IMMATURE GRAN PERCENT AUTO 1.8 % (0.0-0.4); LYMPHOCYTES ABSOLUTE AUTO 1.56 K/uL (1.00-4.80); LYMPHOCYTES PERCENT AUTO 18.6 % (24.0-44.0); MEAN CORPUSCULAR HEMOGLOBIN 31.5 pg (28.0-32.0); MEAN CORPUSCULAR HGB CONC 34.8 g/dL (32.0-36.0); MEAN CORPUSCULAR VOLUME 90.7 fL (83.0-99.0); MEAN PLATELET VOLUME 9.7 fL (9.4-12.4); MONOCYTES ABSOLUTE AUTO 0.95 K/uL (0.00-0.80); MONOCYTES PERCENT AUTO 11.3 % (0.0-8.0); NEUTROPHILS ABSOLUTE AUTO 5.62 K/uL (1.80-7.70); PLATELET COUNT,PLT 208 K/uL (150-400); RED BLOOD CELL COUNT 3.87 M/uL (4.52-5.90); WHITE BLOOD CELL COUNT,WBC 8.39 K/uL (3.9-11.3)
[2023-06-07 06:59] LABS: BLOOD UREA NITROGEN,BUN 17 mg/dL (7.0-18.0); CALCIUM 8.3 mg/dL (8.5-10.1); CARBON DIOXIDE,CO2 26.6 mmol/L (21.0-32.0); CHLORIDE,CL 98 mmol/L (98-107); CREATININE 0.9 mg/dL (0.8-1.3); GLUCOSE RANDOM 92 mg/dL (74-106); SODIUM,NA 133 mmol/L (136-148)
[2023-06-07 07:02] LABS: ESTIMATED GFR 101 mL/min (>60)
[2023-06-07 14:09] VITALS: BP 154/89; PULSE 79
== END 2023-06-07 14:30 | disposition home or self-care (01) | DRG 426 ==
LOC: MW.ED 08:27 → MW.MS 15:38 → OBSVTOIN 06-02 16:12 → MW.ICU 06-02 17:03 → MW.MS 06-05 10:46
PROVIDERS: ADMIT Family Medicine; ATTEND Internal Medicine
PROC: 02HV33Z Insertion of Infusion Device into Superior Vena Cava, Percutaneous Approach (ICD-10-PCS; principal; 2023-06-04)
PROC: B548ZZA Ultrasonography of Superior Vena Cava, Guidance (ICD-10-PCS; 2023-06-04)
DX: E87.1 Hypo-osmolality and hyponatremia (principal); R51.9 Headache, unspecified; J02.9 Acute pharyngitis, unspecified; I10 Essential (primary) hypertension; F41.9 Anxiety disorder, unspecified; E87.5 Hyperkalemia; G89.18 Other acute postprocedural pain; Z79.899 Other long term (current) drug therapy
CPT/HCPCS: 36415; 70450; 70450-26; 71045; 71045-26; 74176; 74176-26; 80048; 80053; 82947; 83735; 83930; 83935; 84100; 84295; 84300; 84439; 84443; 84550; 85025; 87651-QW; 96361; 96374; 96375; 96376; 99284; 99285-25; A9270-GY; C9113; G0378; J1100; J1170; J1650; J1885; J2060; J2405; J3010; J3490; J7040; J7050; J7131

== ENCOUNTER 2023-08-13 12:01 | Inpatient (IN) | payer BC ==
[2023-08-13] MEDS: Alum Hydro/Mag Hydro/Simeth XS 15 ML, Lidocaine 2% 5 ML PO ONE (13:27)
[2023-08-13] MEDS: Ondansetron 4 MG/2 ML SDV IVPUSH ONE (13:27)
[2023-08-13] MEDS: Sodium Chloride 0.9% 10 ML Syringe FLUSH PRN (13:28)
[2023-08-13] MEDS: Morphine 4 MG/ML Syringe IVPUSH ONE ×3 (13:28→15:53)
[2023-08-13] MEDS: Sodium Chloride 0.9% 1,000 ML IV ONE (13:28)
[2023-08-13] MEDS: Sodium Chloride 0.9% 2.5 ML Syringe FLUSH PRN (13:28)
[2023-08-13 13:39] LABS: BASOPHILS ABSOLUTE AUTO 0.02 K/uL (0.00-0.20); BASOPHILS PERCENT AUTO 0.2 % (0.0-1.0); HEMATOCRIT 45.7 % (42.0-52.0); HEMOGLOBIN 15.8 g/dL (14.0-18.0); IMMATURE GRAN ABSOLUTE AUTO 0.25 K/uL (0.00-0.05); LYMPHOCYTES ABSOLUTE AUTO 0.22 K/uL (1.00-4.80); LYMPHOCYTES PERCENT AUTO 2.6 % (24.0-44.0); MEAN CORPUSCULAR HGB CONC 34.6 g/dL (32.0-36.0); MEAN CORPUSCULAR VOLUME 89.8 fL (83.0-99.0); MEAN PLATELET VOLUME 9.5 fL (9.4-12.4); MONOCYTES ABSOLUTE AUTO 0.61 K/uL (0.00-0.80); MONOCYTES PERCENT AUTO 7.3 % (0.0-8.0); NEUTROPHILS ABSOLUTE AUTO 7.31 K/uL (1.80-7.70); NEUTROPHILS PERCENT AUTO 86.9 % (41.0-71.0); PLATELET COUNT,PLT 93 K/uL (150-400); RED BLOOD CELL COUNT 5.09 M/uL (4.52-5.90); WHITE BLOOD CELL COUNT,WBC 8.41 K/uL (3.9-11.3)
[2023-08-13] MEDS: Ketorolac 30 MG/ML SDV IVPUSH ONE (13:51)
[2023-08-13 14:04] LABS: A/G RATIO 0.8 (0.9-1.6); ALBUMIN 2.8 g/dL (3.4-5.0); BILIRUBIN TOTAL 1.7 mg/dL (0.2-1.0); CARBON DIOXIDE,CO2 24.2 mmol/L (21.0-32.0); CREATININE 1.1 mg/dL (0.8-1.3); EST CRCL DRUG DOSING (CG) 83.28 mL/min; MAGNESIUM 2.5 mg/dL (1.8-2.4); PROTEIN TOTAL,TP 6.3 g/dL (6.4-8.2)
[2023-08-13] MEDS ORDERED: Albuterol/Ipratropium 3.0-0.5 MG/3 ML Neb Soln NEB PRN (15:23)
[2023-08-13] MEDS ORDERED: Melatonin 3 MG Tab PO PRN (15:23)
[2023-08-13] MEDS ORDERED: Acetaminophen 325 MG Tab PO PRN (15:23)
[2023-08-13] MEDS ORDERED: Acetaminophen 650 MG Supp RECTAL PRN (15:23)
[2023-08-13] MEDS ORDERED: Naloxone 0.4 MG/ML SDV IVPUSH PRN (15:23)
[2023-08-13] MEDS: Pantoprazole 40 MG in Sodium Chloride 0.9% 10 ML IVPUSH SCH (16:42)
[2023-08-13] MEDS ORDERED: METHOCARBAMOL 500 MG PO PRN (16:49)
[2023-08-13] MEDS ORDERED: LORazepam 0.5 MG Tab PO PRN (16:49)
[2023-08-13] MEDS ORDERED: HYDROmorphone 2 MG Tab PO PRN ×2 (16:49)
[2023-08-13] MEDS ORDERED: Nystatin Susp 100,000 Unit/ML 5 ML UD Cup PO SCH (18:00)
[2023-08-13] MEDS: Fluconazole/Normal Saline 200 MG in Premix Bag 1 BAG IV SCH (18:02)
[2023-08-13] MEDS: Nystatin Susp 100,000 Unit/ML 5 ML UD Cup PO SCH (18:03)
[2023-08-13] MEDS: Morphine 2 MG/ML SYRINGE IVPUSH PRN (19:48)
[2023-08-13] MEDS: levETIRAcetam 500 MG Tab PO SCH (19:55)
[2023-08-13] MEDS: Sennosides 8.6 MG Tab PO SCH (19:56)
[2023-08-13] MEDS ORDERED: Non-Formulary Medication 1 Each (Levetiracetam [Keppra] 1,000 MG Tablet) PO SCH (21:00)
[2023-08-13] MEDS: Dexamethasone 4 MG Tab PO SCH (21:38)
[2023-08-13] MEDS: NORTRIPTYLINE 25 MG PO SCH (21:38)
[2023-08-13] MEDS: Nortriptyline 25 MG Cap PO SCH (21:59)
[2023-08-14 05:46] LABS: HEMATOCRIT 40.5 % (42.0-52.0); MEAN CORPUSCULAR HEMOGLOBIN 31.1 pg (28.0-32.0); MEAN CORPUSCULAR HGB CONC 34.6 g/dL (32.0-36.0); MEAN PLATELET VOLUME 9.8 fL (9.4-12.4); PLATELET COUNT,PLT 83 K/uL (150-400); WHITE BLOOD CELL COUNT,WBC 6.75 K/uL (3.9-11.3)
[2023-08-14 06:13] LABS: A/G RATIO 0.8 (0.9-1.6); ALBUMIN 2.4 g/dL (3.4-5.0); BILIRUBIN TOTAL 1.2 mg/dL (0.2-1.0); CALCIUM 8.4 mg/dL (8.5-10.1); CARBON DIOXIDE,CO2 24.3 mmol/L (21.0-32.0); CREATININE 1.1 mg/dL (0.8-1.3); EST CRCL DRUG DOSING (CG) 83.28 mL/min; MAGNESIUM 2.4 mg/dL (1.8-2.4); PHOSPHORUS 4.6 mg/dL (2.6-4.7); PROTEIN TOTAL,TP 5.6 g/dL (6.4-8.2)
[2023-08-14 06:27] LABS: SEG NEUTROPHILS ABSOLUTE MAN 6.28 K/uL (1.80-7.70); SEG NEUTROPHILS PERCENT MAN 93 % (41-71)
[2023-08-14 06:28] LABS: BAND ABSOLUTE MAN 0.27; LYMPHOCYTES ABSOLUTE MAN 0.27 K/uL (1.00-4.80); LYMPHOCYTES PERCENT MAN 4 % (24-44); METAMYELOCYTE ABSOLUTE MAN 0.07; METAMYELOCYTE PERCENT MAN 1 %; MONOCYTES ABSOLUTE MAN 0.14 K/uL (0.00-0.80); MONOCYTES PERCENT MAN 2 % (0-8)
[2023-08-14] MEDS: Levothyroxine 50 MCG Tab PO SCH (06:30)
[2023-08-14] MEDS: Metoprolol Succinate 100 MG Tab.ER PO SCH (08:09)
[2023-08-14] MEDS: Diltiazem 120 MG Cap.CD PO SCH (08:10)
[2023-08-14] MEDS ORDERED: Non-Formulary Medication 1 Each (Metoprolol Tartrate 100 MG Tablet) PO SCH (09:00)
[2023-08-14] MEDS ORDERED: Sennosides 8.6 MG Tab PO SCH (09:00)
[2023-08-14] MEDS: MEMANTINE 10 MG PO SCH (09:04)
[2023-08-14] MEDS: Sodium Chloride 1 GM Tab PO SCH (13:37)
[2023-08-14] MEDS: LORazepam 0.5 MG Tab PO PRN (14:44)
[2023-08-14 15:30] LABS: CALCIUM 8.6 mg/dL (8.5-10.1); CARBON DIOXIDE,CO2 21.2 mmol/L (21.0-32.0); EST CRCL DRUG DOSING (CG) 91.61 mL/min
[2023-08-14] MEDS: Gadobenate Dimeglumine 529 MG/ML 20 ML SDV IVPUSH STA (16:54)
[2023-08-14] MEDS: Sodium Chloride 0.9% 500 ML IV SCH (18:15)
[2023-08-14] MEDS: Morphine 2 MG/ML SYRINGE IVPUSH PRN (19:02)
[2023-08-14 20:12] LABS: CALCIUM 8.3 mg/dL (8.5-10.1); CARBON DIOXIDE,CO2 23.7 mmol/L (21.0-32.0); CREATININE 0.9 mg/dL (0.8-1.3); EST CRCL DRUG DOSING (CG) 101.79 mL/min; POTASSIUM,K 4.9 mmol/L (3.5-5.1)
[2023-08-15 06:11] LABS: HEMATOCRIT 46.4 % (42.0-52.0); HEMOGLOBIN 15.5 g/dL (14.0-18.0); MEAN CORPUSCULAR HEMOGLOBIN 30.3 pg (28.0-32.0); MEAN CORPUSCULAR HGB CONC 33.4 g/dL (32.0-36.0); MEAN CORPUSCULAR VOLUME 90.8 fL (83.0-99.0); MEAN PLATELET VOLUME 11.6 fL (9.4-12.4); PLATELET COUNT,PLT 53 K/uL (150-400); RED BLOOD CELL COUNT 5.11 M/uL (4.52-5.90); WHITE BLOOD CELL COUNT,WBC 8.51 K/uL (3.9-11.3)
[2023-08-15 06:24] LABS: MAGNESIUM 2.3 mg/dL (1.8-2.4)
[2023-08-15 06:35] LABS: CARBON DIOXIDE,CO2 27.4 mmol/L (21.0-32.0); CREATININE 1.2 mg/dL (0.8-1.3); EST CRCL DRUG DOSING (CG) 76.34 mL/min; POTASSIUM,K 5.6 mmol/L (3.5-5.1)
[2023-08-15 07:15] LABS: LYMPHOCYTES ABSOLUTE MAN 0.17 K/uL (1.00-4.80); LYMPHOCYTES PERCENT MAN 2 % (24-44); METAMYELOCYTE ABSOLUTE MAN 0.09; METAMYELOCYTE PERCENT MAN 1 %; MONOCYTES ABSOLUTE MAN 0.34 K/uL (0.00-0.80); MONOCYTES PERCENT MAN 4 % (0-8); SEG NEUTROPHILS ABSOLUTE MAN 7.91 K/uL (1.80-7.70); SEG NEUTROPHILS PERCENT MAN 93 % (41-71)
[2023-08-15] MEDS: Polyethylene Glycol 3350 Powder 17 GM Packet PO PRN (09:38)
[2023-08-15] MEDS: Ondansetron 4 MG/2 ML SDV IVPUSH PRN (09:40)
[2023-08-15] MEDS ORDERED: HYDROmorphone 1 MG/ML Syringe IVPUSH PRN (10:53)
[2023-08-15] MEDS ORDERED: Naloxone 0.4 MG/ML SDV IVPUSH PRN (10:53)
[2023-08-15] MEDS: Nystatin Susp 100,000 Unit/ML 5 ML UD Cup PO SCH (12:11)
[2023-08-15] MEDS: LORazepam 0.5 MG Tab PO SCH (19:06)
[2023-08-16 06:42] LABS: BASOPHILS ABSOLUTE AUTO 0.01 K/uL (0.00-0.20); BASOPHILS PERCENT AUTO 0.1 % (0.0-1.0); HEMATOCRIT 39.5 % (42.0-52.0); HEMOGLOBIN 13.6 g/dL (14.0-18.0); IMMATURE GRAN ABSOLUTE AUTO 0.37 K/uL (0.00-0.05); IMMATURE GRAN PERCENT AUTO 4.8 % (0.0-0.4); LYMPHOCYTES ABSOLUTE AUTO 0.21 K/uL (1.00-4.80); LYMPHOCYTES PERCENT AUTO 2.7 % (24.0-44.0); MEAN CORPUSCULAR HEMOGLOBIN 30.7 pg (28.0-32.0); MEAN CORPUSCULAR HGB CONC 34.4 g/dL (32.0-36.0); MEAN CORPUSCULAR VOLUME 89.2 fL (83.0-99.0); MEAN PLATELET VOLUME 9.6 fL (9.4-12.4); MONOCYTES ABSOLUTE AUTO 0.44 K/uL (0.00-0.80); MONOCYTES PERCENT AUTO 5.7 % (0.0-8.0); NEUTROPHILS ABSOLUTE AUTO 6.64 K/uL (1.80-7.70); NEUTROPHILS PERCENT AUTO 86.7 % (41.0-71.0); PLATELET COUNT,PLT 84 K/uL (150-400); RED BLOOD CELL COUNT 4.43 M/uL (4.52-5.90); WHITE BLOOD CELL COUNT,WBC 7.67 K/uL (3.9-11.3)
[2023-08-16 07:01] LABS: A/G RATIO 0.8 (0.9-1.6); ALBUMIN 2.4 g/dL (3.4-5.0); BILIRUBIN TOTAL 1.1 mg/dL (0.2-1.0); CALCIUM 8.4 mg/dL (8.5-10.1); CARBON DIOXIDE,CO2 24.1 mmol/L (21.0-32.0); EST CRCL DRUG DOSING (CG) 91.61 mL/min; POTASSIUM,K 4.4 mmol/L (3.5-5.1); PROTEIN TOTAL,TP 5.5 g/dL (6.4-8.2)
[2023-08-16 11:52] LABS: TSH ULTRASENSITIVE 0.19 uIU/mL (0.36-3.74)
[2023-08-16 12:17] LABS: T4 FREE 0.72 ng/dL (0.76-1.46)
[2023-08-16 14:48] VITALS: BP 148/101; PULSE 68
== END 2023-08-16 14:49 | disposition home health service (06) | DRG 861 ==
LOC: MW.ED 12:01 → MW.MS 15:41
PROVIDERS: ADMIT Family Medicine; ATTEND Family Medicine
DX: R53.1 Weakness (principal); I10 Essential (primary) hypertension; G89.29 Other chronic pain; M54.50 Low back pain, unspecified; M54.2 Cervicalgia; F41.9 Anxiety disorder, unspecified; B37.0 Candidal stomatitis; C71.9 Malignant neoplasm of brain, unspecified; R29.6 Repeated falls; R56.9 Unspecified convulsions; M48.02 Spinal stenosis, cervical region; M48.061 Spinal stenosis, lumbar region without neurogenic claudication; Z79.899 Other long term (current) drug therapy
CPT/HCPCS: 36415; 72156; 72156-26; 72157; 72157-26; 72158; 72158-26; 80048; 80053; 82550; 83735; 84100; 84439; 84443; 85025; 96361; 96374; 96375; 97162-GP; 97530-GP; 99285; 99285-25; A9270-GY; A9577; C9113; J1450; J1885; J2270; J2405; J3490; J7030; J7040; J8540

== ENCOUNTER 2023-10-14 15:55 | Emergency (ER) | payer BC ==
[2023-10-14] MEDS: Sodium Chloride 0.9% 1,000 ML IV ONE (16:42)
[2023-10-14] MEDS: Ondansetron 4 MG/2 ML SDV IVPUSH ONE (16:43)
[2023-10-14] MEDS: Famotidine 20 MG/2 ML SDV IVPUSH ONE (16:43)
[2023-10-14 17:14] LABS: BASOPHILS ABSOLUTE AUTO 0.03 K/uL (0.00-0.20); BASOPHILS PERCENT AUTO 0.5 % (0.0-1.0); EOSINOPHILS ABSOLUTE AUTO 0.22 K/uL (0.00-0.45); EOSINOPHILS PERCENT AUTO 3.5 % (0.0-6.0); HEMATOCRIT 33.7 % (42.0-52.0); IMMATURE GRAN ABSOLUTE AUTO 0.04 K/uL (0.00-0.05); IMMATURE GRAN PERCENT AUTO 0.6 % (0.0-0.4); LYMPHOCYTES ABSOLUTE AUTO 1.02 K/uL (1.00-4.80); LYMPHOCYTES PERCENT AUTO 16.3 % (24.0-44.0); MEAN CORPUSCULAR HEMOGLOBIN 30.1 pg (28.0-32.0); MEAN CORPUSCULAR HGB CONC 32.6 g/dL (32.0-36.0); MEAN CORPUSCULAR VOLUME 92.3 fL (83.0-99.0); MEAN PLATELET VOLUME 10.2 fL (9.4-12.4); MONOCYTES ABSOLUTE AUTO 0.45 K/uL (0.00-0.80); MONOCYTES PERCENT AUTO 7.2 % (0.0-8.0); NEUTROPHILS PERCENT AUTO 71.9 % (41.0-71.0); PLATELET COUNT,PLT 222 K/uL (150-400); RED BLOOD CELL COUNT 3.65 M/uL (4.52-5.90); WHITE BLOOD CELL COUNT,WBC 6.26 K/uL (3.9-11.3)
[2023-10-14 17:48] LABS: A/G RATIO 1.1 (0.9-1.6); ALBUMIN 3.5 g/dL (3.4-5.0); CALCIUM 9.1 mg/dL (8.5-10.1); CARBON DIOXIDE,CO2 21.2 mmol/L (21.0-32.0); CREATININE 0.9 mg/dL (0.8-1.3); EST CRCL DRUG DOSING (CG) 101.79 mL/min; MAGNESIUM 1.5 mg/dL (1.8-2.4); POTASSIUM,K 2.7 mmol/L (3.5-5.1); PROTEIN TOTAL,TP 6.8 g/dL (6.4-8.2)
[2023-10-14] MEDS: Sodium Chloride 0.9% 10 ML Syringe FLUSH PRN (18:03)
[2023-10-14] MEDS: Magnesium Sulfate/Water 2 GM in Premix Bag 1 BAG IV ONE (18:03)
[2023-10-14] MEDS: Sodium Chloride 0.9% 2.5 ML Syringe FLUSH PRN (18:03)
[2023-10-14] MEDS: Iopamidol 755 MG/ML 500 ML Multipack Bottle IVPUSH STA (18:35)
[2023-10-14] MEDS: Potassium Chloride 20 MEQ Tab.ER PO ONE (19:34)
[2023-10-14 20:43] VITALS: BP 149/95; PULSE 76
== END 2023-10-14 20:43 | disposition home or self-care (01) ==
LOC: MW.ED 15:55
DX: E86.0 Dehydration (principal); E87.6 Hypokalemia; E83.42 Hypomagnesemia; I10 Essential (primary) hypertension; Z79.899 Other long term (current) drug therapy; Z79.890 Hormone replacement therapy; Z75.8 Other problems related to medical facilities and other health care
CPT/HCPCS: 36415; 70470; 74176; 80053; 83690; 83735; 84484; 85025; 93005; 96361; 96365; 96375; 99284; A9270; J2405; J3475; J3490; J7030; Q9967; 93010

== ENCOUNTER 2024-08-26 22:52 | Observation (INO) | payer BC ==
[2024-08-26] MEDS ORDERED: Sodium Chloride 0.9% 10 ML Syringe FLUSH PRN (23:59)
[2024-08-26] MEDS ORDERED: Sodium Chloride 0.9% 2.5 ML Syringe FLUSH PRN (23:59)
[2024-08-27 00:23] LABS: BASOPHILS ABSOLUTE AUTO 0.03 K/uL (0.00-0.20); BASOPHILS PERCENT AUTO 0.3 % (0.0-1.0); HEMATOCRIT 36.2 % (42.0-52.0); HEMOGLOBIN 12.7 g/dL (14.0-18.0); IMMATURE GRAN ABSOLUTE AUTO 0.06 K/uL (0.00-0.05); IMMATURE GRAN PERCENT AUTO 0.6 % (0.0-0.4); LYMPHOCYTES ABSOLUTE AUTO 1.17 K/uL (1.00-4.80); LYMPHOCYTES PERCENT AUTO 12.3 % (24.0-44.0); MEAN CORPUSCULAR HEMOGLOBIN 32.7 pg (28.0-32.0); MEAN CORPUSCULAR HGB CONC 35.1 g/dL (32.0-36.0); MEAN CORPUSCULAR VOLUME 93.3 fL (83.0-99.0); MEAN PLATELET VOLUME 9.3 fL (9.4-12.4); MONOCYTES ABSOLUTE AUTO 1.15 K/uL (0.00-0.80); MONOCYTES PERCENT AUTO 12.1 % (0.0-8.0); NEUTROPHILS ABSOLUTE AUTO 7.11 K/uL (1.80-7.70); NEUTROPHILS PERCENT AUTO 74.7 % (41.0-71.0); PLATELET COUNT,PLT 164 K/uL (150-400); RED BLOOD CELL COUNT 3.88 M/uL (4.52-5.90); WHITE BLOOD CELL COUNT,WBC 9.52 K/uL (3.9-11.3)
[2024-08-27 00:50] LABS: A/G RATIO 1.2 (0.9-1.6); ALBUMIN 3.7 g/dL (3.4-5.0); BILIRUBIN TOTAL 0.4 mg/dL (0.2-1.0); CALCIUM 8.9 mg/dL (8.5-10.1); CREATININE 1.1 mg/dL (0.8-1.3); EST CRCL DRUG DOSING (CG) 82.3 mL/min; POTASSIUM,K 3.8 mmol/L (3.5-5.1); PROTEIN TOTAL,TP 6.8 g/dL (6.4-8.2)
[2024-08-27 05:48] LABS: BASOPHILS ABSOLUTE AUTO 0.02 K/uL (0.00-0.20); BASOPHILS PERCENT AUTO 0.3 % (0.0-1.0); EOSINOPHILS ABSOLUTE AUTO 0.01 K/uL (0.00-0.45); EOSINOPHILS PERCENT AUTO 0.2 % (0.0-6.0); HEMATOCRIT 34.5 % (42.0-52.0); HEMOGLOBIN 11.8 g/dL (14.0-18.0); IMMATURE GRAN ABSOLUTE AUTO 0.03 K/uL (0.00-0.05); IMMATURE GRAN PERCENT AUTO 0.5 % (0.0-0.4); LYMPHOCYTES ABSOLUTE AUTO 1.01 K/uL (1.00-4.80); LYMPHOCYTES PERCENT AUTO 15.2 % (24.0-44.0); MEAN CORPUSCULAR HEMOGLOBIN 32.2 pg (28.0-32.0); MEAN CORPUSCULAR HGB CONC 34.2 g/dL (32.0-36.0); MEAN CORPUSCULAR VOLUME 94.3 fL (83.0-99.0); MEAN PLATELET VOLUME 9.6 fL (9.4-12.4); MONOCYTES ABSOLUTE AUTO 0.68 K/uL (0.00-0.80); MONOCYTES PERCENT AUTO 10.3 % (0.0-8.0); NEUTROPHILS ABSOLUTE AUTO 4.88 K/uL (1.80-7.70); NEUTROPHILS PERCENT AUTO 73.5 % (41.0-71.0); PLATELET COUNT,PLT 161 K/uL (150-400); RED BLOOD CELL COUNT 3.66 M/uL (4.52-5.90); WHITE BLOOD CELL COUNT,WBC 6.63 K/uL (3.9-11.3)
[2024-08-27 06:07] LABS: CALCIUM 8.6 mg/dL (8.5-10.1); CARBON DIOXIDE,CO2 27.5 mmol/L (21.0-32.0); CREATININE 1.1 mg/dL (0.8-1.3); EST CRCL DRUG DOSING (CG) 82.3 mL/min; POTASSIUM,K 3.8 mmol/L (3.5-5.1)
[2024-08-27] MEDS: levETIRAcetam 500 MG Tab PO SCH (11:58)
[2024-08-27 12:51] VITALS: BP 138/84; PULSE 67
[2024-08-27] MEDS: Acetaminophen 325 MG Tab PO PRN (13:27)
== END 2024-08-27 13:30 | disposition home or self-care (01) ==
LOC: MW.ED 22:52 → MW.MS 08-27 01:26
PROVIDERS: ADMIT Internal Medicine; ATTEND Internal Medicine
DX: T42.6X1A Poisoning by other antiepileptic and sedative-hypnotic drugs, accidental (unintentional), initial encounter (principal); T42.4X1A Poisoning by benzodiazepines, accidental (unintentional), initial encounter; T46.1X1A Poisoning by calcium-channel blockers, accidental (unintentional), initial encounter; T40.2X1A Poisoning by other opioids, accidental (unintentional), initial encounter; T44.7X1A Poisoning by beta-adrenoreceptor antagonists, accidental (unintentional), initial encounter; I10 Essential (primary) hypertension; F41.9 Anxiety disorder, unspecified; Z79.899 Other long term (current) drug therapy
CPT/HCPCS: 36415; 80048; 80053; 80143; 83690; 85025; 99284; A9270-GY; G0378